=== PATIENT | male | born 1945 | race Caucasian/White ===

== ENCOUNTER 2020-01-14 12:53 | Inpatient (IN) ==
[2020-01-14] MEDS ORDERED: ALBUTEROL/IPRATROPIUM 3 ML NEB RESP TX STA (13:29)
[2020-01-14] MEDS ORDERED: methylPREDNISolone SOD SUC 125 MG/2 ML VIAL IV STA (13:29)
[2020-01-14 13:37] LABS: Basophils % 0.3 % (0.0-0.8); Eosinophils # 0.1 10*3/uL (0.0-0.87); Eosinophils % 1.2 % (0.00-10.9); Hematocrit 39.6 VOL% (42.0-52.0); Hemoglobin 12.3 GM/DL (14.0-18.0); Immature Granulocytes % 0.5 %; Immature Granulocytes Absolute 0.06 #; Lymphocytes # 1.5 10*3/uL (1.4-4.0); Mean Corpuscular HGB Conc 31.1 GM/DL (32-36); Mean Corpuscular Volume 93.2 FL (87-102); Mean Platelet Volume 11.6 FL (9.6-12.0); NRBC # 0.02 10*3/uL; Platelet Count 198 T/CUMM (130-400); Red Blood Count 4.25 MC/CUMM (3.8-5.5); Red Cell Distribution Width 14.8 % (9.3-17.3)
[2020-01-14 13:38] LABS: Apearance,Urine CLEAR (Clear); Bacteria,Urine Occasional /HPF (Few); Bilirubin,Urine Negative (Negative); Blood, Urine Negative (Negative); Glucose,Urine (UA) Negative (Negative); Hyaline Casts,Urine 7 /LPF (0-3); Ketones,Urine Negative (Negative); Nitrite,Urine Negative (Negative); Protein,Urine Negative; RBC,Urine 1 /HPF (0-4); Urine Color Yellow (Yellow); Urine Specific Gravity 1.013 (1.001-1.035); WBC,Urine 1 /HPF (0-6)
[2020-01-14 13:51] LABS: Alanine Aminotransferase 29 U/L (16-61); Albumin 2.8 G/DL (3.4-5.0); Alkaline Phosphatase 178 U/L (45-117); Aspartate Amino Transferase 37 U/L (0-37); Blood Urea Nitrogen 18 MG/DL (7-18); Calcium 8.7 MG/DL (8.5-10.1); Estimated Glom Filtration Rate 61 ML/MIN; Glucose 103 MG/DL (74-106); Osmolality,Calculated 263.7 MOS/KG (273-304); Total Protein 7.6 G/DL (6.4-8.3)
[2020-01-14] MEDS ORDERED: AZITHROMYCIN 250 MG TABLET PO STA (14:18)
[2020-01-14] MEDS ORDERED: cefTRIAXone 1,000 MG in SODIUM CHLORIDE 0.9% 100 ML IV STA (14:18)
[2020-01-14] MEDS ORDERED: DEXTROSE 10% 250 ML BAG IV PRN (15:11)
[2020-01-14] MEDS ORDERED: ONDANSETRON 4 MG/2 ML VIAL IV PRN (15:11)
[2020-01-14] MEDS ORDERED: SIMETHICONE CHEW 125 MG TABLET PO PRN (15:11)
[2020-01-14] MEDS ORDERED: GLUCAGON 1 MG VIAL IM PRN (15:11)
[2020-01-14] MEDS ORDERED: DOCUSATE SODIUM 100 MG CAPSULE PO PRN (15:11)
[2020-01-14] MEDS ORDERED: ALBUTEROL/IPRATROPIUM 3 ML NEB RESP TX PRN (15:21)
[2020-01-14] MEDS ORDERED: DILTIAZEM 25 MG/5 ML VIAL IV ONE (15:42)
[2020-01-14] MEDS ORDERED: DILTIAZEM 50 MG/10 ML VIAL IV STA (15:50)
[2020-01-14] MEDS ORDERED: PNEUMOCOCCAL VACCINE (13 VALENT) 0.5 ML SYRINGE IM ONE (17:04)
[2020-01-14] MEDS: SODIUM CHLORIDE 0.9% 1,000 ML IV SCH (17:16)
[2020-01-14] MEDS: guaiFENesin 200 MG/10 ML UDCUP PO PRN (17:21)
[2020-01-14] MEDS: ENOXAPARIN 40 MG/0.4 ML SYRINGE SUBCUT SCH (17:21)
[2020-01-14] MEDS: ALBUTEROL/IPRATROPIUM 3 ML NEB RESP TX SCH (19:50)
[2020-01-15] MEDS: ALBUTEROL/IPRATROPIUM 3 ML NEB RESP TX SCH ×6 (00:33→19:20)
[2020-01-15] MEDS: methylPREDNISolone SOD SUC 40 MG/1 ML VIAL IV SCH ×2 (00:40→08:40)
[2020-01-15 05:52] LABS: Calcium 8.4 MG/DL (8.5-10.1); Osmolality,Calculated 275.1 MOS/KG (273-304)
[2020-01-15 05:57] LABS: Basophils % 0.1 % (0.0-0.8); Hematocrit 35.9 VOL% (42.0-52.0); Hemoglobin 11.4 GM/DL (14.0-18.0); Immature Granulocytes % 0.6 %; Immature Granulocytes Absolute 0.05 #; Lymphocytes # 0.7 10*3/uL (1.4-4.0); Lymphocytes % 8.4 % (21.2-54.2); Mean Corpuscular HGB Conc 31.8 GM/DL (32-36); Mean Corpuscular Volume 90.9 FL (87-102); Mean Platelet Volume 11.6 FL (9.6-12.0); Monocytes % 2.8 % (1.7-12.7); Neutrophils % 88.1 % (38.7-73.9); Platelet Count 198 T/CUMM (130-400); Red Blood Count 3.95 MC/CUMM (3.8-5.5); White Blood Count 8.3 T/CUMM (4-12)
[2020-01-15] MEDS: guaiFENesin 200 MG/10 ML UDCUP PO PRN (07:09)
[2020-01-15] MEDS: SODIUM CHLORIDE 0.9% 1,000 ML IV SCH (08:39)
[2020-01-15] MEDS: cefTRIAXone 1,000 MG in SYRINGE 1 EACH IV SCH (08:41)
[2020-01-15] MEDS: ENOXAPARIN 40 MG/0.4 ML SYRINGE SUBCUT SCH (08:43)
[2020-01-15] MEDS: AZITHROMYCIN INJ 250 MG in SODIUM CHLORIDE 0.9% 150 ML IV SCH (08:47)
[2020-01-16] MEDS: ALBUTEROL/IPRATROPIUM 3 ML NEB RESP TX SCH ×8 (00:35→23:22)
[2020-01-16 05:26] LABS: Basophils % 0.1 % (0.0-0.8); Hemoglobin 11.2 GM/DL (14.0-18.0); Immature Granulocytes % 0.7 %; Lymphocytes % 6.7 % (21.2-54.2); Mean Corpuscular HGB Conc 31.1 GM/DL (32-36); Mean Corpuscular Volume 93.3 FL (87-102); Mean Platelet Volume 11.1 FL (9.6-12.0); Monocytes % 5.3 % (1.7-12.7); NRBC # 0.02 10*3/uL; Neutrophils % 87.2 % (38.7-73.9); Platelet Count 214 T/CUMM (130-400); Red Blood Count 3.86 MC/CUMM (3.8-5.5); Red Cell Distribution Width 15.2 % (9.3-17.3); White Blood Count 14.3 T/CUMM (4-12)
[2020-01-16 05:43] LABS: Albumin 2.7 G/DL (3.4-5.0); Bilirubin,Total 0.7 MG/DL (0.2-1.0); Calcium 8.7 MG/DL (8.5-10.1); Total Protein 7.6 G/DL (6.4-8.3)
[2020-01-16] MEDS: ENOXAPARIN 40 MG/0.4 ML SYRINGE SUBCUT SCH (09:09)
[2020-01-16] MEDS: methylPREDNISolone SOD SUC 40 MG/1 ML VIAL IV SCH (09:09)
[2020-01-16] MEDS: cefTRIAXone 1,000 MG in SYRINGE 1 EACH IV SCH (09:13)
[2020-01-16] MEDS: AZITHROMYCIN INJ 250 MG in SODIUM CHLORIDE 0.9% 150 ML IV SCH (09:17)
[2020-01-16] MEDS: SODIUM CHLORIDE 0.9% 1,000 ML IV SCH (10:50)
[2020-01-16] MEDS: guaiFENesin 200 MG/10 ML UDCUP PO PRN ×2 (11:48→18:08)
[2020-01-17] MEDS: ALBUTEROL/IPRATROPIUM 3 ML NEB RESP TX SCH ×6 (05:34→23:40)
[2020-01-17] MEDS: guaiFENesin 200 MG/10 ML UDCUP PO PRN (06:39)
[2020-01-17] MEDS: cefTRIAXone 1,000 MG in SYRINGE 1 EACH IV SCH (08:30)
[2020-01-17] MEDS: methylPREDNISolone SOD SUC 40 MG/1 ML VIAL IV SCH (08:31)
[2020-01-17] MEDS: ENOXAPARIN 40 MG/0.4 ML SYRINGE SUBCUT SCH (08:32)
[2020-01-17] MEDS: AZITHROMYCIN 250 MG TABLET PO SCH (08:33)
[2020-01-17 08:50] LABS: Basophils % 0.2 % (0.0-0.8); Hemoglobin 11.1 GM/DL (14.0-18.0); Immature Granulocytes % 0.9 %; Immature Granulocytes Absolute 0.12 #; Lymphocytes # 1.3 10*3/uL (1.4-4.0); Lymphocytes % 9.5 % (21.2-54.2); Mean Corpuscular HGB Conc 30.8 GM/DL (32-36); Mean Platelet Volume 10.8 FL (9.6-12.0); NRBC # 0.02 10*3/uL; Neutrophils % 82.4 % (38.7-73.9); Platelet Count 210 T/CUMM (130-400); Red Blood Count 3.83 MC/CUMM (3.8-5.5); Red Cell Distribution Width 15.5 % (9.3-17.3); White Blood Count 13.2 T/CUMM (4-12)
[2020-01-17 09:05] LABS: Calcium 8.9 MG/DL (8.5-10.1); Osmolality,Calculated 275.1 MOS/KG (273-304)
[2020-01-18] MEDS: ALBUTEROL/IPRATROPIUM 3 ML NEB RESP TX SCH ×6 (02:44→23:40)
[2020-01-18 04:27] LABS: Basophils % 0.1 % (0.0-0.8); Hematocrit 34.6 VOL% (42.0-52.0); Hemoglobin 11.1 GM/DL (14.0-18.0); Immature Granulocytes % 0.8 %; Lymphocytes # 1.2 10*3/uL (1.4-4.0); Lymphocytes % 10.1 % (21.2-54.2); Mean Corpuscular HGB Conc 32.1 GM/DL (32-36); Mean Corpuscular Volume 91.1 FL (87-102); Monocytes % 7.9 % (1.7-12.7); Neutrophils % 81.1 % (38.7-73.9); Platelet Count 205 T/CUMM (130-400); Red Cell Distribution Width 15.4 % (9.3-17.3); White Blood Count 12.1 T/CUMM (4-12)
[2020-01-18 05:06] LABS: Calcium 8.6 MG/DL (8.5-10.1); Osmolality,Calculated 277.1 MOS/KG (273-304)
[2020-01-18] MEDS ORDERED: FUROSEMIDE 40 MG/4 ML VIAL IV ONE (07:36)
[2020-01-18] MEDS: cefTRIAXone 1,000 MG in SYRINGE 1 EACH IV SCH (08:56)
[2020-01-18] MEDS: AZITHROMYCIN 250 MG TABLET PO SCH (08:57)
[2020-01-18] MEDS: LOSARTAN 25 MG TABLET PO SCH ×2 (08:57→20:47)
[2020-01-18] MEDS: carvediloL 3.125 MG TABLET PO SCH ×2 (08:57→16:15)
[2020-01-18] MEDS: ENOXAPARIN 40 MG/0.4 ML SYRINGE SUBCUT SCH (08:58)
[2020-01-18] MEDS: methylPREDNISolone SOD SUC 40 MG/1 ML VIAL IV SCH (08:58)
[2020-01-18] MEDS: SPIRONOLACTONE 25 MG TABLET PO SCH (12:12)
[2020-01-18] MEDS: ASCORBIC ACID 500 MG TABLET PO SCH ×2 (13:34→20:47)
[2020-01-18] MEDS: FUROSEMIDE 40 MG/4 ML VIAL IV SCH ×2 (16:14→17:19)
[2020-01-18] MEDS: ENOXAPARIN 80 MG/0.8 ML SYRINGE SUBCUT SCH (20:47)
[2020-01-19] MEDS: ALBUTEROL/IPRATROPIUM 3 ML NEB RESP TX SCH ×6 (03:42→22:35)
[2020-01-19 05:12] LABS: Calcium 8.7 MG/DL (8.5-10.1); Osmolality,Calculated 278.1 MOS/KG (273-304)
[2020-01-19] MEDS: carvediloL 3.125 MG TABLET PO SCH (09:55)
[2020-01-19] MEDS: SPIRONOLACTONE 25 MG TABLET PO SCH (09:55)
[2020-01-19] MEDS: ENOXAPARIN 80 MG/0.8 ML SYRINGE SUBCUT SCH ×2 (09:55→21:03)
[2020-01-19] MEDS: LOSARTAN 25 MG TABLET PO SCH ×2 (09:55→21:03)
[2020-01-19] MEDS: methylPREDNISolone SOD SUC 40 MG/1 ML VIAL IV SCH (09:56)
[2020-01-19] MEDS: ASCORBIC ACID 500 MG TABLET PO SCH ×2 (09:56→21:04)
[2020-01-19] MEDS: FUROSEMIDE 40 MG/4 ML VIAL IV SCH (09:56)
[2020-01-19] MEDS: cefTRIAXone 1,000 MG in SYRINGE 1 EACH IV SCH (09:57)
[2020-01-19] MEDS: ASPIRIN EC 81 MG TABLET PO SCH (10:00)
[2020-01-19] MEDS ORDERED: FUROSEMIDE 40 MG TABLET PO SCH (16:00)
[2020-01-19] MEDS: carvediloL 6.25 MG TABLET PO SCH (16:33)
[2020-01-20] MEDS: ALBUTEROL/IPRATROPIUM 3 ML NEB RESP TX SCH ×4 (01:28→14:44)
[2020-01-20 05:14] LABS: Basophils % 0.1 % (0.0-0.8); Eosinophils # 0.1 10*3/uL (0.0-0.87); Eosinophils % 0.7 % (0.00-10.9); Hematocrit 34.2 VOL% (42.0-52.0); Immature Granulocytes % 0.7 %; Immature Granulocytes Absolute 0.08 #; Lymphocytes # 2.2 10*3/uL (1.4-4.0); Mean Corpuscular HGB Conc 32.2 GM/DL (32-36); Mean Corpuscular Volume 90.2 FL (87-102); Mean Platelet Volume 11.1 FL (9.6-12.0); Monocytes % 8.5 % (1.7-12.7); NRBC # 0.02 10*3/uL; Platelet Count 234 T/CUMM (130-400); Red Blood Count 3.79 MC/CUMM (3.8-5.5); Red Cell Distribution Width 15.6 % (9.3-17.3)
[2020-01-20 05:34] LABS: Calcium 8.3 MG/DL (8.5-10.1)
[2020-01-20] MEDS ORDERED: APIXABAN 5 MG TABLET PO SCH (09:00)
[2020-01-20] MEDS ORDERED: FUROSEMIDE 40 MG TABLET PO SCH (09:00)
[2020-01-20] MEDS ORDERED: SACUBITRIL/VALSARTAN 49-51 MG TABLET PO SCH (09:00)
[2020-01-20] MEDS: carvediloL 6.25 MG TABLET PO SCH (10:00)
[2020-01-20] MEDS: ASPIRIN EC 81 MG TABLET PO SCH (10:00)
[2020-01-20] MEDS: cefTRIAXone 1,000 MG in SYRINGE 1 EACH IV SCH (10:01)
[2020-01-20] MEDS: methylPREDNISolone SOD SUC 40 MG/1 ML VIAL IV SCH (10:04)
[2020-01-20] MEDS: ASCORBIC ACID 500 MG TABLET PO SCH (10:10)
[2020-01-20] MEDS: SPIRONOLACTONE 25 MG TABLET PO SCH (10:10)
[2020-01-20 12:59] VITALS: BP 126/56
== END 2020-01-20 16:50 | disposition home or self-care (01) | DRG 193 ==
LOC: N.ED 12:53 → N.EDINP 15:11 → SUATTDRO 15:11 → N.2E 16:19 → N.3E 01-18 18:08
PROVIDERS: ADMIT Internal Medicine; ATTEND Internal Medicine Geriatric Medicine

== ENCOUNTER 2020-03-10 05:47 | Inpatient (IN) ==
[2020-03-10] MEDS ORDERED: DIAZEPAM 5 MG TABLET PO ONE (05:59)
[2020-03-10] MEDS ORDERED: ASPIRIN 325 MG TABLET PO ONE (05:59)
[2020-03-10] MEDS ORDERED: diphenhydrAMINE CAP 25 MG CAPSULE PO ONE (05:59)
[2020-03-10] MEDS ORDERED: MAGNESIUM SULF RIDER 2 GM in PREMIX 1 EACH IV PRN (05:59)
[2020-03-10] MEDS ORDERED: POTASSIUM CHLORIDE RIDER 10 MEQ in PREMIX 1 EACH IV PRN (05:59)
[2020-03-10] MEDS ORDERED: DEXTROSE 5% NACL 0.45% 1,000 ML IV SCH (06:00)
[2020-03-10 07:05] LABS: INR 1.7; PT Patient Result 17.2 SECS (9.8-11.9)
[2020-03-10] MEDS ORDERED: ASPIRIN 325 MG TABLET ONE (07:05)
[2020-03-10] MEDS ORDERED: DIAZEPAM 5 MG TABLET ONE (07:05)
[2020-03-10] MEDS ORDERED: diphenhydrAMINE CAP 25 MG CAPSULE ONE (07:06)
[2020-03-10] MEDS ORDERED: HEPARIN/NACL 0.9% 2 UNITS/ML 1,000 ML IV ONE (07:24)
[2020-03-10] MEDS ORDERED: LIDOCAINE 1%/EPI INJ 20 ML VIAL ONE (07:24)
[2020-03-10] MEDS ORDERED: fentaNYL 100 MCG/2 ML VIAL ONE (07:38)
[2020-03-10] MEDS ORDERED: MIDAZOLAM 2 MG/2 ML VIAL ONE (07:38)
[2020-03-10] MEDS ORDERED: HYDROmorphone 2 MG/1 ML VIAL IV PRN (08:38)
[2020-03-10 08:54] LABS: Basophils % 0.2 % (0.0-0.8); Eosinophils # 0.5 10*3/uL (0.0-0.87); Eosinophils % 5.3 % (0.00-10.9); Immature Granulocytes % 0.5 %; Immature Granulocytes Absolute 0.05 #; Lymphocytes # 1.8 10*3/uL (1.4-4.0); Lymphocytes % 19.8 % (21.2-54.2); Mean Corpuscular HGB Conc 30.7 GM/DL (32-36); Mean Corpuscular Volume 94.2 FL (87-102); Mean Platelet Volume 10.8 FL (9.6-12.0); Monocytes % 9.4 % (1.7-12.7); Neutrophils % 64.8 % (38.7-73.9); Platelet Count 171 T/CUMM (130-400); Red Blood Count 1.73 MC/CUMM (3.8-5.5); Red Cell Distribution Width 18.5 % (9.3-17.3); White Blood Count 9.2 T/CUMM (4-12)
[2020-03-10 08:59] LABS: Hematocrit 16.3 VOL% (42.0-52.0)
[2020-03-10] MEDS ORDERED: SPIRONOLACTONE 25 MG TABLET PO SCH (09:00)
[2020-03-10] MEDS ORDERED: ASPIRIN EC 81 MG TABLET PO SCH (09:00)
[2020-03-10 09:05] LABS: Apearance,Urine CLEAR (Clear); Bacteria,Urine Occasional /HPF (Few); Bilirubin,Urine Negative (Negative); Blood, Urine Small mg/dL (Negative); Glucose,Urine (UA) Negative (Negative); Ketones,Urine Negative (Negative); Mucus,Urine Occasional /LPF (Occasional); Nitrite,Urine Negative (Negative); Protein,Urine Negative; RBC,Urine 1 /HPF (0-4); Urine Color Straw (Yellow); Urine Specific Gravity 1.012 (1.001-1.035); Urine Urobilinogen < 2.0 EU/DL (0.2-1.0)
[2020-03-10 09:09] LABS: Calcium 8.1 MG/DL (8.5-10.1); Osmolality,Calculated 302.4 MOS/KG (273-304)
[2020-03-10] MEDS ORDERED: SODIUM CHLORIDE 0.9% 1,000 ML IV PRN (09:09)
[2020-03-10 10:57] LABS: Basophils % 0.3 % (0.0-0.8); Eosinophils # 0.5 10*3/uL (0.0-0.87); Eosinophils % 4.9 % (0.00-10.9); Immature Granulocytes % 0.4 %; Immature Granulocytes Absolute 0.04 #; Lymphocytes # 2.1 10*3/uL (1.4-4.0); Lymphocytes % 22.5 % (21.2-54.2); Mean Corpuscular HGB Conc 30.1 GM/DL (32-36); Mean Corpuscular Volume 95.1 FL (87-102); Mean Platelet Volume 10.6 FL (9.6-12.0); Monocytes % 10.5 % (1.7-12.7); Neutrophils % 61.4 % (38.7-73.9); Platelet Count 189 T/CUMM (130-400); Red Blood Count 1.85 MC/CUMM (3.8-5.5); Red Cell Distribution Width 18.5 % (9.3-17.3); White Blood Count 9.4 T/CUMM (4-12)
[2020-03-10 11:05] LABS: Folate 10.3 NG/ML (5.4-24.0); Vitamin B12 286 PG/ML (211-911)
[2020-03-10 11:26] LABS: Hematocrit 17.6 VOL% (42.0-52.0); Hemoglobin 5.3 GM/DL (14.0-18.0)
[2020-03-10 11:59] LABS: Sedimentation Rate-Westergren 99 MM/HR (0-20)
[2020-03-10] MEDS ORDERED: MAGNESIUM HYDROXIDE SUSP 30 ML UDCUP PO PRN (13:41)
[2020-03-10] MEDS ORDERED: diphenhydrAMINE CAP 25 MG CAPSULE PO PRN (13:41)
[2020-03-10] MEDS: ASPIRIN EC 81 MG TABLET PO SCH (15:41)
[2020-03-10] MEDS: FUROSEMIDE 40 MG TABLET PO SCH (15:42)
[2020-03-10] MEDS: SACUBITRIL/VALSARTAN 49-51 MG TABLET PO SCH ×2 (15:42→20:33)
[2020-03-10] MEDS: ASCORBIC ACID 500 MG TABLET PO SCH ×2 (15:42→20:33)
[2020-03-10] MEDS: carvediloL 6.25 MG TABLET PO SCH (17:47)
[2020-03-10] MEDS: ROSUVASTATIN 20 MG TABLET PO SCH (20:33)
[2020-03-11 06:36] LABS: Basophils # 0.1 10*3/uL (0.0-0.2); Basophils % 0.4 % (0.0-0.8); Eosinophils # 0.7 10*3/uL (0.0-0.87); Hematocrit 30.1 VOL% (42.0-52.0); Hemoglobin 9.8 GM/DL (14.0-18.0); Immature Granulocytes % 0.5 %; Immature Granulocytes Absolute 0.06 #; Lymphocytes # 2.5 10*3/uL (1.4-4.0); Lymphocytes % 21.1 % (21.2-54.2); Mean Corpuscular HGB Conc 32.6 GM/DL (32-36); Mean Corpuscular Volume 89.9 FL (87-102); Mean Platelet Volume 10.7 FL (9.6-12.0); Monocytes % 13.1 % (1.7-12.7); Neutrophils % 58.9 % (38.7-73.9); Platelet Count 192 T/CUMM (130-400); Red Blood Count 3.35 MC/CUMM (3.8-5.5); Red Cell Distribution Width 17.1 % (9.3-17.3)
[2020-03-11 06:54] LABS: Calcium 8.8 MG/DL (8.5-10.1); Osmolality,Calculated 292.1 MOS/KG (273-304)
[2020-03-11] MEDS: carvediloL 6.25 MG TABLET PO SCH ×2 (08:17→16:01)
[2020-03-11] MEDS: ASPIRIN EC 81 MG TABLET PO SCH (08:20)
[2020-03-11] MEDS: ASCORBIC ACID 500 MG TABLET PO SCH ×2 (08:20→21:01)
[2020-03-11] MEDS: FUROSEMIDE 40 MG TABLET PO SCH (08:20)
[2020-03-11 10:34] LABS: Hemoglobin A1 (Alkaline) 97.7 % (96.5-98.5); Hemoglobin A2 (Alkaline) 2.3 % (1.5-3.5)
[2020-03-11] MEDS: ISOSORBIDE MONONITRATE 30 MG TABLET PO SCH (12:16)
[2020-03-11] MEDS ORDERED: NITROGLYCERIN SL 0.4 MG TABLET SL PRN (13:28)
[2020-03-11 17:48] LABS: Basophils % 0.3 % (0.0-0.8); Eosinophils # 0.7 10*3/uL (0.0-0.87); Eosinophils % 5.4 % (0.00-10.9); Hematocrit 30.6 VOL% (42.0-52.0); Hemoglobin 10.1 GM/DL (14.0-18.0); Immature Granulocytes % 0.5 %; Immature Granulocytes Absolute 0.06 #; Lymphocytes # 2.3 10*3/uL (1.4-4.0); Lymphocytes % 18.6 % (21.2-54.2); Mean Corpuscular Volume 87.9 FL (87-102); Mean Platelet Volume 10.3 FL (9.6-12.0); Monocytes % 8.9 % (1.7-12.7); Neutrophils % 66.3 % (38.7-73.9); Platelet Count 199 T/CUMM (130-400); Red Blood Count 3.48 MC/CUMM (3.8-5.5); Red Cell Distribution Width 17.3 % (9.3-17.3); White Blood Count 12.2 T/CUMM (4-12)
[2020-03-11] MEDS: ROSUVASTATIN 20 MG TABLET PO SCH (21:01)
[2020-03-11] MEDS: hydrALAZINE 25 MG TABLET PO SCH (21:01)
[2020-03-12 06:20] LABS: Basophils # 0.1 10*3/uL (0.0-0.2); Basophils % 0.4 % (0.0-0.8); Eosinophils # 0.8 10*3/uL (0.0-0.87); Eosinophils % 6.4 % (0.00-10.9); Hematocrit 33.9 VOL% (42.0-52.0); Immature Granulocytes % 0.5 %; Immature Granulocytes Absolute 0.06 #; Lymphocytes # 2.6 10*3/uL (1.4-4.0); Lymphocytes % 22.2 % (21.2-54.2); Mean Corpuscular HGB Conc 32.4 GM/DL (32-36); Mean Corpuscular Volume 90.2 FL (87-102); Mean Platelet Volume 10.3 FL (9.6-12.0); Monocytes % 11.3 % (1.7-12.7); Neutrophils % 59.2 % (38.7-73.9); Platelet Count 223 T/CUMM (130-400); Red Blood Count 3.76 MC/CUMM (3.8-5.5); Red Cell Distribution Width 17.2 % (9.3-17.3); White Blood Count 11.7 T/CUMM (4-12)
[2020-03-12 06:29] LABS: INR 1.1; PT Patient Result 11.4 SECS (9.8-11.9)
[2020-03-12 06:50] LABS: Calcium 9.3 MG/DL (8.5-10.1); Osmolality,Calculated 289.1 MOS/KG (273-304)
[2020-03-12 07:32] LABS: Albumin 3.1 G/DL (3.4-5.0); Bilirubin,Total 0.4 MG/DL (0.2-1.0); Calcium 9.3 MG/DL (8.5-10.1); Total Protein 6.9 G/DL (6.4-8.3)
[2020-03-12] MEDS ORDERED: SODIUM CHLORIDE 0.9% 1,000 ML IV SCH (09:00)
[2020-03-12] MEDS ORDERED: DEXTROSE 10% 250 ML BAG IV PRN (09:22)
[2020-03-12] MEDS ORDERED: GLUCAGON 1 MG VIAL IM PRN (09:22)
[2020-03-12] MEDS: ASPIRIN EC 81 MG TABLET PO SCH (09:27)
[2020-03-12] MEDS: hydrALAZINE 25 MG TABLET PO SCH ×2 (09:27→21:49)
[2020-03-12] MEDS: carvediloL 6.25 MG TABLET PO SCH ×2 (09:27→18:15)
[2020-03-12] MEDS: ASCORBIC ACID 500 MG TABLET PO SCH ×2 (09:28→21:49)
[2020-03-12] MEDS: ISOSORBIDE MONONITRATE 30 MG TABLET PO SCH (09:28)
[2020-03-12 10:40] LABS: ABG Base Excess -1.5 MMOL/L (-2.5-2.5); ABG HCO3 23.2 MMOL/L (20-26); ABG Oxygen Saturation 97.8 % (95-100); ABG PCO2 34.5 MM HG (35-48); ABG PH 7.421 (7.35-7.45); ABG PO2 94.5 MM HG (80-95); ABG TCO2 20.1 MMOL/L (23-27); Allen Test Positive; Pt O2 Delivery Device Room Air
[2020-03-12] MEDS: CHLORHEXIDINE 4% SOLN 118 ML BOTTLE TOP SCH ×2 (15:39→21:49)
[2020-03-12] MEDS: ROSUVASTATIN 20 MG TABLET PO SCH (21:49)
[2020-03-12] MEDS: CHLORHEXIDINE 0.12% ORAL RINSE 60 ML BOTTLE SWISH/SPIT SCH (21:50)
[2020-03-13] MEDS ORDERED: PAPAVERINE 60 MG/2 ML VIAL ONE (04:20)
[2020-03-13] MEDS ORDERED: VANCOMYCIN 500 MG VIAL ONE (04:20)
[2020-03-13] MEDS ORDERED: VANCOMYCIN 1,000 MG VIAL ONE (04:21)
[2020-03-13 05:30] LABS: Basophils # 0.1 10*3/uL (0.0-0.2); Basophils % 0.5 % (0.0-0.8); Eosinophils # 0.8 10*3/uL (0.0-0.87); Eosinophils % 8.3 % (0.00-10.9); Hematocrit 32.5 VOL% (42.0-52.0); Hemoglobin 10.3 GM/DL (14.0-18.0); Immature Granulocytes % 0.4 %; Immature Granulocytes Absolute 0.04 #; Lymphocytes # 2.7 10*3/uL (1.4-4.0); Lymphocytes % 26.7 % (21.2-54.2); Mean Corpuscular HGB Conc 31.7 GM/DL (32-36); Mean Corpuscular Volume 92.1 FL (87-102); Mean Platelet Volume 10.1 FL (9.6-12.0); Monocytes % 9.4 % (1.7-12.7); Neutrophils % 54.7 % (38.7-73.9); Platelet Count 218 T/CUMM (130-400); Red Blood Count 3.53 MC/CUMM (3.8-5.5); Red Cell Distribution Width 17.2 % (9.3-17.3)
[2020-03-13 05:56] LABS: Calcium 8.8 MG/DL (8.5-10.1); Osmolality,Calculated 287.8 MOS/KG (273-304)
[2020-03-13] MEDS ORDERED: CEFUROXIME INJ 1,500 MG in SYRINGE 1 EACH IV ONE (06:00)
[2020-03-13] MEDS ORDERED: LIDOCAINE 2% 5 ML VIAL ONE ×2 (06:04→09:38)
[2020-03-13] MEDS ORDERED: PHENYLEPHRINE DRIP 20 MG/250 ML PREMIX IV ONE (06:05)
[2020-03-13] MEDS ORDERED: MIDAZOLAM 10 MG/2 ML VIAL ONE (06:05)
[2020-03-13] MEDS ORDERED: CALCIUM CHLORIDE 1,000 MG/10 ML VIAL IV ONE (06:05)
[2020-03-13] MEDS ORDERED: HEPARIN/NACL 0.9% 2 UNITS/ML 500 ML IV ONE (06:05)
[2020-03-13] MEDS ORDERED: ePHEDrine 50 MG/ML AMP ONE (06:05)
[2020-03-13] MEDS ORDERED: fentaNYL 250 MCG/5 ML VIAL ONE (06:05)
[2020-03-13] MEDS ORDERED: LACTATED RINGERS 1,000 ML IV ONE (06:06)
[2020-03-13] MEDS ORDERED: SODIUM CHLORIDE 0.9% 250 ML IV ONE (06:06)
[2020-03-13] MEDS ORDERED: AMINOCAPROIC ACID 5,000 MG/20 ML VIAL ONE (06:06)
[2020-03-13] MEDS ORDERED: SODIUM CHLORIDE 0.9% 1,000 ML IV ONE (06:06)
[2020-03-13] MEDS ORDERED: VECURONIUM 10 MG VIAL IV ONE (06:06)
[2020-03-13] MEDS ORDERED: ETOMIDATE 40 MG/20 ML VIAL IV ONE (06:06)
[2020-03-13] MEDS ORDERED: NITROPRUSSIDE 50 MG/2 ML VIAL ONE (07:25)
[2020-03-13] MEDS ORDERED: SODIUM BICARBONATE 50 MEQ/50 ML VIAL IV ONE ×2 (07:26→09:38)
[2020-03-13] MEDS ORDERED: POTASSIUM CHLORIDE RIDER 100 ML IV ONE (07:26)
[2020-03-13] MEDS ORDERED: CALCIUM CHLORIDE 1,000 MG/10 ML SYRINGE IV ONE (07:26)
[2020-03-13] MEDS ORDERED: PHENYLEPHRINE DRIP 40 MG/250 ML PREMIX IV ONE (07:26)
[2020-03-13] MEDS ORDERED: ALBUMIN 5% 12.5 GM/250 ML VIAL IV ONE ×2 (07:27→09:39)
[2020-03-13 07:41] LABS: ABG Base Excess -2.7 MMOL/L (-2.5-2.5); ABG HCO3 22.2 MMOL/L (20-26); ABG PCO2 40.2 MM HG (35-48); ABG PH 7.357 (7.35-7.45); ABG TCO2 20.6 MMOL/L (23-27); Glucose Heart Surgery 115 MG/DL (74-106); Hematocrit Heart Surgery 30.4 PERCENT (42-52); Hemoglobin Heart Surgery 9.8 G/DL (14.0-18.0); Ionized Calcium Arterial 1.23 MMOL/L (1.21-1.46); PCO2 Patient Temp Arterial 40.2 MMHG; PH Patient Temp Arterial 7.357; Patient Temperature 37 CELCIUS; Potassium Heart/CVR 4.2 MMOL/L (3.5-5.1); Sodium Heart/CVR 139 MMOL/L (135-145)
[2020-03-13 08:33] LABS: Hematocrit Heart Surgery 25.2 PERCENT (42-52); Hemoglobin Heart Surgery 8.1 G/DL (14.0-18.0); PCO2 Patient Temp Venous 33.9 MM HG; PH Patient Temp Venous 7.382; PO2 Patient Temp Venous 41.8 MM HG; VBG Base Excess -4.3 MEQ/L (0-4); VBG HCO3 20.6 MEQ/L (24-28); VBG Oxygen Saturation 82.6 %; VBG PCO2 37.3 MMHG (41-51); VBG PH 7.353
[2020-03-13 08:34] LABS: Potassium Heart/CVR 6.2 MMOL/L (3.5-5.1)
[2020-03-13] MEDS ORDERED: diphenhydrAMINE 50 MG/1 ML VIAL ONE (08:56)
[2020-03-13] MEDS ORDERED: FAMOTIDINE 20 MG/2 ML VIAL IV ONE (08:57)
[2020-03-13 09:05] LABS: Hematocrit Heart Surgery 26.6 PERCENT (42-52); Hemoglobin Heart Surgery 8.5 G/DL (14.0-18.0); PH Patient Temp Venous 7.516; PO2 Patient Temp Venous 39.4 MM HG; Potassium Heart/CVR 5.9 MMOL/L (3.5-5.1); VBG Base Excess 0.3 MEQ/L (0-4); VBG HCO3 24.5 MEQ/L (24-28); VBG Oxygen Saturation 84.3 %; VBG PCO2 30.8 MMHG (41-51); VBG PH 7.485; VBG PO2 45.2 MMHG (17-40)
[2020-03-13] MEDS ORDERED: methylPREDNISolone SOD SUC 1,000 MG/8 ML VIAL ONE (09:38)
[2020-03-13] MEDS ORDERED: MAGNESIUM SULFATE 5 GM/10 ML VIAL IV ONE (09:38)
[2020-03-13] MEDS ORDERED: MANNITOL 100 GM/500 ML BAG IV ONE (09:38)
[2020-03-13] MEDS ORDERED: PROTAMINE SULFATE 250 MG/25 ML VIAL IV ONE (09:38)
[2020-03-13] MEDS ORDERED: DEXTROSE 5% KCL 20 MEQ 20 MEQ/1,000 ML BAG IV ONE (09:38)
[2020-03-13] MEDS ORDERED: HEPARIN 10,000 UNIT/10 ML VIAL ONE (09:38)
[2020-03-13] MEDS ORDERED: FUROSEMIDE 20 MG/2 ML VIAL ONE (09:39)
[2020-03-13 09:44] LABS: ABG Base Excess -1.3 MMOL/L (-2.5-2.5); ABG HCO3 23.3 MMOL/L (20-26); ABG PCO2 36.6 MM HG (35-48); ABG PH 7.407 (7.35-7.45); ABG TCO2 21.2 MMOL/L (23-27); Glucose Heart Surgery 258 MG/DL (74-106); Hematocrit Heart Surgery 28.3 PERCENT (42-52); Hemoglobin Heart Surgery 9.1 G/DL (14.0-18.0); Ionized Calcium Arterial 1.12 MMOL/L (1.21-1.46); PCO2 Patient Temp Arterial 36.6 MMHG; PH Patient Temp Arterial 7.407; Patient Temperature 37 CELCIUS; Potassium Heart/CVR 5.4 MMOL/L (3.5-5.1); Sodium Heart/CVR 136 MMOL/L (135-145)
[2020-03-13] MEDS ORDERED: SEVOFLURANE 1 UNIT/15 MINUTE INH ONE (10:38)
[2020-03-13] MEDS ORDERED: CALCIUM CHLORIDE 1,000 MG/10 ML SYRINGE IV PRN (10:42)
[2020-03-13] MEDS ORDERED: SODIUM CHLORIDE 0.45% 1,000 ML IV SCH ×2 (10:42)
[2020-03-13] MEDS ORDERED: CHLORHEXIDINE 4% SOLN 118 ML BOTTLE TOP PRN (10:42)
[2020-03-13] MEDS ORDERED: MORPHINE 10 MG/1 ML VIAL IV PRN (10:42)
[2020-03-13] MEDS ORDERED: INSULIN REGULAR 100 UNIT/ML IV ONE (10:42)
[2020-03-13] MEDS ORDERED: MAGNESIUM SULF RIDER 4 GM in PREMIX 1 EACH IV PRN (10:42)
[2020-03-13] MEDS ORDERED: DEXTROSE 10% 250 ML BAG IV PRN ×2 (10:42)
[2020-03-13] MEDS ORDERED: MIDAZOLAM 2 MG/2 ML VIAL IV PRN (10:42)
[2020-03-13] MEDS ORDERED: PHENYLEPHRINE DRIP 40 MG/250 ML PREMIX IV PRN (10:42)
[2020-03-13] MEDS ORDERED: POTASSIUM CHLORIDE RIDER 10 MEQ in PREMIX 1 EACH IV PRN (10:42)
[2020-03-13] MEDS ORDERED: INSULIN REGULAR DRIP 100 ML IV SCH (10:42)
[2020-03-13] MEDS ORDERED: NITROPRUSSIDE 100 MG in DEXTROSE 5% 250 ML IV PRN (10:42)
[2020-03-13] MEDS ORDERED: ALBUMIN 5% 12.5 GM in PREMIX 1 EACH IV PRN (10:42)
[2020-03-13] MEDS ORDERED: LACTATED RINGERS 250 ML IV PRN (10:42)
[2020-03-13] MEDS ORDERED: MAGNESIUM SULF RIDER 2 GM in PREMIX 1 EACH IV PRN (10:42)
[2020-03-13] MEDS ORDERED: MIDAZOLAM 10 MG/2 ML VIAL IV PRN (10:42)
[2020-03-13] MEDS ORDERED: ONDANSETRON 4 MG/2 ML VIAL IV PRN (10:42)
[2020-03-13] MEDS ORDERED: VECURONIUM 10 MG VIAL IV PRN ×2 (10:42)
[2020-03-13 10:58] LABS: ABG Base Excess -1.5 MMOL/L (-2.5-2.5); ABG HCO3 23.2 MMOL/L (20-26); ABG Oxygen Saturation 99.5 % (95-100); ABG PCO2 45.8 MM HG (35-48); ABG PH 7.337 (7.35-7.45); ABG TCO2 22.3 MMOL/L (23-27); Glucose Heart Surgery 230 MG/DL (74-106); Hemoglobin Heart Surgery 10.7 G/DL (14.0-18.0); Potassium Heart/CVR 4.7 MMOL/L (3.5-5.1)
[2020-03-13] MEDS: ASPIRIN EC 81 MG TABLET PO SCH (11:00)
[2020-03-13] MEDS: ISOSORBIDE MONONITRATE 30 MG TABLET PO SCH (11:00)
[2020-03-13] MEDS: hydrALAZINE 25 MG TABLET PO SCH (11:00)
[2020-03-13] MEDS: carvediloL 6.25 MG TABLET PO SCH ×2 (11:00→20:21)
[2020-03-13] MEDS: ASCORBIC ACID 500 MG TABLET PO SCH (11:01)
[2020-03-13] MEDS: CHLORHEXIDINE 0.12% ORAL RINSE 60 ML BOTTLE SWISH/SPIT SCH ×2 (11:01→21:23)
[2020-03-13 11:02] LABS: Basophils % 0.3 % (0.0-0.8); Eosinophils # 0.5 10*3/uL (0.0-0.87); Eosinophils % 4.1 % (0.00-10.9); Hematocrit 32.1 VOL% (42.0-52.0); Hemoglobin 10.4 GM/DL (14.0-18.0); Immature Granulocytes Absolute 0.12 #; Lymphocytes # 1.4 10*3/uL (1.4-4.0); Lymphocytes % 10.9 % (21.2-54.2); Mean Corpuscular HGB Conc 32.4 GM/DL (32-36); Mean Corpuscular Volume 91.7 FL (87-102); Mean Platelet Volume 10.2 FL (9.6-12.0); Monocytes % 6.5 % (1.7-12.7); Neutrophils % 77.2 % (38.7-73.9); Platelet Count 204 T/CUMM (130-400); Red Cell Distribution Width 16.9 % (9.3-17.3); White Blood Count 12.4 T/CUMM (4-12)
[2020-03-13 11:15] LABS: INR 1.1; PT Patient Result 12.1 SECS (9.8-11.9); Partial Thromboplastin Time 31.4 SECS (23.9-33.8)
[2020-03-13 11:34] LABS: CKMB % 11.7 %; Troponin I 7.56 NG/ML (0.00-0.045)
[2020-03-13 11:35] LABS: Bilirubin,Total 0.9 MG/DL (0.2-1.0); Calcium 9.1 MG/DL (8.5-10.1); Osmolality,Calculated 295.5 MOS/KG (273-304); Total Protein 6.7 G/DL (6.4-8.3)
[2020-03-13 12:38] LABS: ABG Base Excess -2.8 MMOL/L (-2.5-2.5); ABG HCO3 22.1 MMOL/L (20-26); ABG Oxygen Saturation 97.5 % (95-100); ABG PCO2 42.1 MM HG (35-48); ABG PH 7.342 (7.35-7.45); ABG PO2 96.1 MM HG (80-95); ABG TCO2 20.9 MMOL/L (23-27); Glucose Heart Surgery 221 MG/DL (74-106); Hematocrit Heart Surgery 30.5 PERCENT (42-52); Hemoglobin Heart Surgery 9.8 G/DL (14.0-18.0); Potassium Heart/CVR 4.3 MMOL/L (3.5-5.1)
[2020-03-13] MEDS: CHLORHEXIDINE 4% SOLN 118 ML BOTTLE TOP SCH (12:43)
[2020-03-13 12:58] LABS: Hematocrit Heart Surgery 30.4 PERCENT (42-52); Hemoglobin Heart Surgery 9.8 G/DL (14.0-18.0); PCO2 Patient Temp Venous 44.3 MM HG; PH Patient Temp Venous 7.323; PO2 Patient Temp Venous 85.3 MM HG; Potassium Heart/CVR 4.4 MMOL/L (3.5-5.1); VBG Base Excess -3.1 MEQ/L (0-4); VBG HCO3 21.8 MEQ/L (24-28); VBG Oxygen Saturation 96.3 %; VBG PCO2 44.3 MMHG (41-51); VBG PH 7.323; VBG PO2 85.3 MMHG (17-40)
[2020-03-13] MEDS: NITROGLYCERIN DRIP 50 MG/250 ML BOTTLE IV PRN (13:05)
[2020-03-13] MEDS: INSULIN REGULAR 100 UNIT/ML IV PRN ×2 (13:58→16:12)
[2020-03-13] MEDS: POTASSIUM CHLORIDE RIDER 20 MEQ in PREMIX 1 EACH IV PRN ×2 (13:59→18:40)
[2020-03-13] MEDS: MORPHINE 4 MG/1 ML VIAL IV PRN ×2 (16:05→21:32)
[2020-03-13 18:04] LABS: ABG Base Excess -1.2 MMOL/L (-2.5-2.5); ABG HCO3 23.4 MMOL/L (20-26); ABG Oxygen Saturation 99.5 % (95-100); ABG PCO2 41.7 MM HG (35-48); ABG PH 7.369 (7.35-7.45); ABG TCO2 22.4 MMOL/L (23-27); Glucose Heart Surgery 98 MG/DL (74-106); Hemoglobin Heart Surgery 8.4 G/DL (14.0-18.0); Potassium Heart/CVR 3.7 MMOL/L (3.5-5.1)
[2020-03-13 18:33] LABS: CKMB % 9.6 %
[2020-03-13 18:35] LABS: Troponin I 7.92 NG/ML (0.00-0.045)
[2020-03-13] MEDS: CEFUROXIME INJ 1,500 MG in SYRINGE 1 EACH IV SCH (18:40)
[2020-03-13] MEDS ORDERED: FUROSEMIDE 40 MG/4 ML VIAL IV PRN (18:58)
[2020-03-13 20:42] LABS: ABG Base Excess -0.7 MMOL/L (-2.5-2.5); ABG HCO3 23.6 MMOL/L (20-26); ABG Oxygen Saturation 97.8 % (95-100); ABG PCO2 37.5 MM HG (35-48); ABG PH 7.417 (7.35-7.45); ABG PO2 120.5 MM HG (80-95); ABG TCO2 24.8 MMOL/L (23-27); Glucose Heart Surgery 71 MG/DL (74-106); Hemoglobin Heart Surgery 10.1 G/DL (14.0-18.0); Potassium Heart/CVR 4.1 MMOL/L (3.5-5.1)
[2020-03-13] MEDS: SODIUM CHLORIDE 0.9% 1,000 ML IV SCH (21:44)
[2020-03-14 00:04] LABS: ABG Base Excess -4.8 MMOL/L (-2.5-2.5); ABG HCO3 20.5 MMOL/L (20-26); ABG Oxygen Saturation 98.7 % (95-100); ABG PCO2 34.6 MM HG (35-48); ABG PH 7.366 (7.35-7.45); ABG TCO2 17.8 MMOL/L (23-27); Glucose Heart Surgery 155 MG/DL (74-106); Hematocrit Heart Surgery 35.4 PERCENT (42-52); Hemoglobin Heart Surgery 11.5 G/DL (14.0-18.0); Potassium Heart/CVR 4.3 MMOL/L (3.5-5.1)
[2020-03-14] MEDS: POTASSIUM CHLORIDE RIDER 20 MEQ in PREMIX 1 EACH IV PRN ×2 (00:28→05:51)
[2020-03-14] MEDS: MORPHINE 4 MG/1 ML VIAL IV PRN (00:33)
[2020-03-14 01:03] LABS: ABG Base Excess -4.7 MMOL/L (-2.5-2.5); ABG HCO3 20.6 MMOL/L (20-26); ABG PCO2 33.4 MM HG (35-48); ABG TCO2 18.1 MMOL/L (23-27); Glucose Heart Surgery 164 MG/DL (74-106); Hematocrit Heart Surgery 30.1 PERCENT (42-52); Hemoglobin Heart Surgery 9.7 G/DL (14.0-18.0); Potassium Heart/CVR 4.1 MMOL/L (3.5-5.1)
[2020-03-14 02:05] LABS: ABG Base Excess -3.2 MMOL/L (-2.5-2.5); ABG HCO3 21.8 MMOL/L (20-26); ABG Oxygen Saturation 99.6 % (95-100); ABG PCO2 33.7 MM HG (35-48); ABG PH 7.402 (7.35-7.45); ABG TCO2 19.2 MMOL/L (23-27); Glucose Heart Surgery 157 MG/DL (74-106); Hematocrit Heart Surgery 29.8 PERCENT (42-52); Hemoglobin Heart Surgery 9.6 G/DL (14.0-18.0); Potassium Heart/CVR 4.2 MMOL/L (3.5-5.1)
[2020-03-14] MEDS: NITROGLYCERIN DRIP 50 MG/250 ML BOTTLE IV PRN (02:06)
[2020-03-14 03:29] LABS: ABG Base Excess -1.3 MMOL/L (-2.5-2.5); ABG HCO3 23.3 MMOL/L (20-26); ABG Oxygen Saturation 98.5 % (95-100); ABG PCO2 35.5 MM HG (35-48); ABG PH 7.416 (7.35-7.45); ABG TCO2 20.8 MMOL/L (23-27); Glucose Heart Surgery 129 MG/DL (74-106); Hematocrit Heart Surgery 30.1 PERCENT (42-52); Hemoglobin Heart Surgery 9.7 G/DL (14.0-18.0); Potassium Heart/CVR 4.4 MMOL/L (3.5-5.1)
[2020-03-14 03:42] LABS: Basophils % 0.1 % (0.0-0.8); Hematocrit 29.3 VOL% (42.0-52.0); Hemoglobin 9.5 GM/DL (14.0-18.0); Immature Granulocytes % 0.4 %; Immature Granulocytes Absolute 0.06 #; Lymphocytes # 1.3 10*3/uL (1.4-4.0); Lymphocytes % 9.1 % (21.2-54.2); Mean Corpuscular HGB Conc 32.4 GM/DL (32-36); Mean Platelet Volume 10.3 FL (9.6-12.0); Monocytes % 5.1 % (1.7-12.7); Neutrophils % 85.3 % (38.7-73.9); Platelet Count 186 T/CUMM (130-400); Red Blood Count 3.22 MC/CUMM (3.8-5.5); Red Cell Distribution Width 17.1 % (9.3-17.3); White Blood Count 13.8 T/CUMM (4-12)
[2020-03-14 04:08] LABS: Bilirubin,Direct 0.29 MG/DL (0.0-0.20); Bilirubin,Total 0.6 MG/DL (0.2-1.0); Calcium 8.5 MG/DL (8.5-10.1); Osmolality,Calculated 290.4 MOS/KG (273-304); Total Protein 6.4 G/DL (6.4-8.3)
[2020-03-14 04:18] LABS: CKMB % 6.1 %
[2020-03-14 04:27] LABS: Troponin I 4.51 NG/ML (0.00-0.045)
[2020-03-14] MEDS ORDERED: hydrALAZINE 20 MG/1 ML VIAL IV PRN (07:16)
[2020-03-14] MEDS ORDERED: INSULIN REGULAR 100 UNIT/ML SUBCUT SCH (07:30)
[2020-03-14] MEDS: CEFUROXIME INJ 1,500 MG in SYRINGE 1 EACH IV SCH (07:47)
[2020-03-14] MEDS: carvediloL 6.25 MG TABLET PO SCH ×2 (08:42→16:44)
[2020-03-14] MEDS: CHLORHEXIDINE 0.12% ORAL RINSE 60 ML BOTTLE SWISH/SPIT SCH ×3 (08:43→20:53)
[2020-03-14] MEDS ORDERED: cloNIDine 0.1 MG TABLET PO SCH (09:00)
[2020-03-14] MEDS ORDERED: DEXTROSE 10% 250 ML BAG IV PRN (09:03)
[2020-03-14] MEDS ORDERED: ZALEPLON 5 MG CAPSULE PO PRN (09:03)
[2020-03-14] MEDS ORDERED: DEXTROSE 50% 25 GM/50 ML VIAL IV PRN (09:03)
[2020-03-14] MEDS ORDERED: GLUCAGON 1 MG VIAL IM PRN ×2 (09:03)
[2020-03-14] MEDS ORDERED: POTASSIUM CHLORIDE 20 MEQ TABLET PO PRN (09:03)
[2020-03-14] MEDS ORDERED: MORPHINE 4 MG/1 ML VIAL IV PRN (09:03)
[2020-03-14] MEDS ORDERED: MAGNESIUM SULF RIDER 4 GM in PREMIX 1 EACH IV PRN (09:03)
[2020-03-14] MEDS ORDERED: WARFARIN 5 MG TABLET PO SCH (09:03)
[2020-03-14] MEDS ORDERED: SODIUM CHLOR 0.45% KCL 20 MEQ 20 MEQ/1,000 ML BAG IV SCH (09:03)
[2020-03-14] MEDS ORDERED: ACETAMINOPHEN 325 MG TABLET PO PRN (09:03)
[2020-03-14] MEDS ORDERED: ASPIRIN EC 325 MG TABLET PO SCH (09:03)
[2020-03-14] MEDS ORDERED: MAGNESIUM SULF RIDER 2 GM in PREMIX 1 EACH IV PRN (09:03)
[2020-03-14] MEDS ORDERED: ALUMINUM/MAGNES/SIMETH MAX STR 30 ML UDCUP PO PRN (09:03)
[2020-03-14] MEDS ORDERED: MAGNESIUM HYDROXIDE SUSP 30 ML UDCUP PO PRN (09:03)
[2020-03-14] MEDS: PANTOPRAZOLE 40 MG TABLET PO SCH (10:11)
[2020-03-14] MEDS: FERROUS SULFATE 325 MG TABLET PO SCH (10:12)
[2020-03-14] MEDS: ASCORBIC ACID 500 MG TABLET PO SCH ×2 (10:12→20:49)
[2020-03-14] MEDS: DOCUSATE SODIUM 100 MG CAPSULE PO SCH (10:12)
[2020-03-14] MEDS: oxyCODONE/ACETAMINOPHEN 5-325 MG TABLET PO PRN (10:12)
[2020-03-14] MEDS: SPIRONOLACTONE 25 MG TABLET PO SCH (10:12)
[2020-03-14] MEDS ORDERED: ASPIRIN EC 81 MG TABLET PO SCH (10:16)
[2020-03-14] MEDS: INSULIN LISPRO 100 UNIT/ML SUBCUT SCH ×3 (11:50→20:49)
[2020-03-14] MEDS: ONDANSETRON 4 MG/2 ML VIAL IV PRN (14:00)
[2020-03-14] MEDS: ROSUVASTATIN 20 MG TABLET PO SCH (20:49)
[2020-03-15 05:17] LABS: Basophils % 0.1 % (0.0-0.8); Hematocrit 35.1 VOL% (42.0-52.0); Hemoglobin 10.9 GM/DL (14.0-18.0); Immature Granulocytes % 0.7 %; Immature Granulocytes Absolute 0.13 #; Lymphocytes # 1.2 10*3/uL (1.4-4.0); Lymphocytes % 6.8 % (21.2-54.2); Mean Corpuscular HGB Conc 31.1 GM/DL (32-36); Mean Corpuscular Volume 94.6 FL (87-102); Mean Platelet Volume 10.3 FL (9.6-12.0); Monocytes % 7.5 % (1.7-12.7); Neutrophils % 84.9 % (38.7-73.9); Platelet Count 209 T/CUMM (130-400); Red Blood Count 3.71 MC/CUMM (3.8-5.5); Red Cell Distribution Width 17.4 % (9.3-17.3); White Blood Count 17.6 T/CUMM (4-12)
[2020-03-15 05:55] LABS: Bilirubin,Direct 0.26 MG/DL (0.0-0.20); Bilirubin,Indirect 0.3 MG/DL (0.0-1.0); Bilirubin,Total 0.6 MG/DL (0.2-1.0); Osmolality,Calculated 282.1 MOS/KG (273-304)
[2020-03-15] MEDS ORDERED: FUROSEMIDE 40 MG/4 ML VIAL IV ONE (06:00)
[2020-03-15] MEDS: INSULIN LISPRO 100 UNIT/ML SUBCUT SCH ×4 (09:24→20:35)
[2020-03-15] MEDS: PANTOPRAZOLE 40 MG TABLET PO SCH (09:25)
[2020-03-15] MEDS: carvediloL 6.25 MG TABLET PO SCH ×2 (09:25→16:54)
[2020-03-15] MEDS: DOCUSATE SODIUM 100 MG CAPSULE PO SCH (09:25)
[2020-03-15] MEDS: SPIRONOLACTONE 25 MG TABLET PO SCH (09:25)
[2020-03-15] MEDS: ASCORBIC ACID 500 MG TABLET PO SCH ×2 (09:25→20:34)
[2020-03-15] MEDS: FERROUS SULFATE 325 MG TABLET PO SCH (09:25)
[2020-03-15] MEDS: ISOSORBIDE MONONITRATE 30 MG TABLET PO SCH (10:42)
[2020-03-15] MEDS: oxyCODONE/ACETAMINOPHEN 5-325 MG TABLET PO PRN ×2 (10:42→23:23)
[2020-03-15] MEDS: hydrALAZINE 25 MG TABLET PO SCH ×3 (10:42→20:34)
[2020-03-15] MEDS: CHLORHEXIDINE 0.12% ORAL RINSE 60 ML BOTTLE SWISH/SPIT SCH ×2 (10:47→20:34)
[2020-03-15] MEDS: ROSUVASTATIN 20 MG TABLET PO SCH (20:34)
[2020-03-16 05:44] LABS: Basophils % 0.1 % (0.0-0.8); Eosinophils # 0.1 10*3/uL (0.0-0.87); Eosinophils % 0.6 % (0.00-10.9); Hematocrit 31.8 VOL% (42.0-52.0); Hemoglobin 9.9 GM/DL (14.0-18.0); Immature Granulocytes % 0.5 %; Immature Granulocytes Absolute 0.08 #; Lymphocytes # 2.6 10*3/uL (1.4-4.0); Lymphocytes % 16.4 % (21.2-54.2); Mean Corpuscular HGB Conc 31.1 GM/DL (32-36); Mean Corpuscular Volume 93.5 FL (87-102); Mean Platelet Volume 10.7 FL (9.6-12.0); Monocytes % 8.3 % (1.7-12.7); Neutrophils % 74.1 % (38.7-73.9); Platelet Count 180 T/CUMM (130-400); Red Cell Distribution Width 16.7 % (9.3-17.3); White Blood Count 15.7 T/CUMM (4-12)
[2020-03-16 06:20] LABS: Albumin 2.8 G/DL (3.4-5.0); Bilirubin,Direct 0.21 MG/DL (0.0-0.20); Bilirubin,Indirect 0.3 MG/DL (0.0-1.0); Bilirubin,Total 0.5 MG/DL (0.2-1.0); Osmolality,Calculated 277.2 MOS/KG (273-304); Total Protein 6.6 G/DL (6.4-8.3)
[2020-03-16] MEDS: INSULIN LISPRO 100 UNIT/ML SUBCUT SCH ×4 (09:10→21:00)
[2020-03-16] MEDS: PANTOPRAZOLE 40 MG TABLET PO SCH (09:11)
[2020-03-16] MEDS: carvediloL 6.25 MG TABLET PO SCH ×2 (09:11→16:40)
[2020-03-16] MEDS: SPIRONOLACTONE 25 MG TABLET PO SCH (09:11)
[2020-03-16] MEDS: ASPIRIN EC 325 MG TABLET PO SCH (09:11)
[2020-03-16] MEDS: hydrALAZINE 25 MG TABLET PO SCH ×4 (09:11→20:59)
[2020-03-16] MEDS: DOCUSATE SODIUM 100 MG CAPSULE PO SCH (09:11)
[2020-03-16] MEDS: ASCORBIC ACID 500 MG TABLET PO SCH ×2 (09:11→20:59)
[2020-03-16] MEDS: FERROUS SULFATE 325 MG TABLET PO SCH (09:11)
[2020-03-16] MEDS: ISOSORBIDE MONONITRATE 30 MG TABLET PO SCH (09:11)
[2020-03-16] MEDS: CHLORHEXIDINE 0.12% ORAL RINSE 60 ML BOTTLE SWISH/SPIT SCH ×2 (09:12→20:59)
[2020-03-16] MEDS: ROSUVASTATIN 20 MG TABLET PO SCH (20:59)
[2020-03-17 08:04] LABS: Basophils % 0.2 % (0.0-0.8); Eosinophils # 0.7 10*3/uL (0.0-0.87); Eosinophils % 5.1 % (0.00-10.9); Hematocrit 31.3 VOL% (42.0-52.0); Immature Granulocytes % 0.6 %; Immature Granulocytes Absolute 0.08 #; Lymphocytes # 2.3 10*3/uL (1.4-4.0); Lymphocytes % 17.6 % (21.2-54.2); Mean Corpuscular HGB Conc 31.9 GM/DL (32-36); Mean Corpuscular Volume 91.8 FL (87-102); Mean Platelet Volume 10.8 FL (9.6-12.0); Monocytes % 8.8 % (1.7-12.7); Neutrophils % 67.7 % (38.7-73.9); Platelet Count 191 T/CUMM (130-400); Red Blood Count 3.41 MC/CUMM (3.8-5.5); Red Cell Distribution Width 16.2 % (9.3-17.3)
[2020-03-17] MEDS: INSULIN LISPRO 100 UNIT/ML SUBCUT SCH ×4 (08:20→20:48)
[2020-03-17] MEDS: ASPIRIN EC 325 MG TABLET PO SCH (09:01)
[2020-03-17] MEDS: SPIRONOLACTONE 25 MG TABLET PO SCH (09:01)
[2020-03-17] MEDS: PANTOPRAZOLE 40 MG TABLET PO SCH (09:02)
[2020-03-17] MEDS: ISOSORBIDE MONONITRATE 30 MG TABLET PO SCH (09:02)
[2020-03-17] MEDS: FERROUS SULFATE 325 MG TABLET PO SCH (09:02)
[2020-03-17] MEDS: hydrALAZINE 25 MG TABLET PO SCH ×3 (09:02→20:46)
[2020-03-17] MEDS: ASCORBIC ACID 500 MG TABLET PO SCH ×2 (09:02→20:46)
[2020-03-17] MEDS: carvediloL 6.25 MG TABLET PO SCH ×2 (09:02→16:05)
[2020-03-17] MEDS: DOCUSATE SODIUM 100 MG CAPSULE PO SCH (09:02)
[2020-03-17] MEDS: CHLORHEXIDINE 0.12% ORAL RINSE 60 ML BOTTLE SWISH/SPIT SCH ×2 (09:28→20:48)
[2020-03-17] MEDS: ROSUVASTATIN 20 MG TABLET PO SCH (20:46)
[2020-03-18] MEDS: oxyCODONE/ACETAMINOPHEN 5-325 MG TABLET PO PRN (01:58)
[2020-03-18 05:45] LABS: Basophils % 0.1 % (0.0-0.8); Eosinophils # 0.7 10*3/uL (0.0-0.87); Eosinophils % 4.8 % (0.00-10.9); Hematocrit 32.9 VOL% (42.0-52.0); Hemoglobin 10.2 GM/DL (14.0-18.0); Immature Granulocytes % 0.7 %; Immature Granulocytes Absolute 0.09 #; Lymphocytes # 2.2 10*3/uL (1.4-4.0); Lymphocytes % 15.9 % (21.2-54.2); Mean Corpuscular Volume 95.4 FL (87-102); Mean Platelet Volume 10.8 FL (9.6-12.0); Neutrophils % 70.5 % (38.7-73.9); Platelet Count 224 T/CUMM (130-400); Red Blood Count 3.45 MC/CUMM (3.8-5.5); Red Cell Distribution Width 16.2 % (9.3-17.3); White Blood Count 13.6 T/CUMM (4-12)
[2020-03-18 06:06] LABS: Alanine Aminotransferase 24 U/L (16-61); Albumin 2.8 G/DL (3.4-5.0); Alkaline Phosphatase 67 U/L (45-117); Aspartate Amino Transferase 41 U/L (0-37); Blood Urea Nitrogen 37 MG/DL (7-18); Calcium 8.5 MG/DL (8.5-10.1); Estimated Glom Filtration Rate 47 ML/MIN; Glucose 102 MG/DL (74-106); Osmolality,Calculated 281.8 MOS/KG (273-304); Total Protein 6.5 G/DL (6.4-8.3)
[2020-03-18] MEDS: INSULIN LISPRO 100 UNIT/ML SUBCUT SCH ×2 (07:54→12:40)
[2020-03-18] MEDS ORDERED: carvediloL 12.5 MG TABLET PO SCH ×2 (09:00)
[2020-03-18] MEDS ORDERED: carvediloL 25 MG TABLET PO SCH (09:00)
[2020-03-18] MEDS: hydrALAZINE 25 MG TABLET PO SCH (09:02)
[2020-03-18] MEDS: ISOSORBIDE MONONITRATE 30 MG TABLET PO SCH (09:02)
[2020-03-18] MEDS: FERROUS SULFATE 325 MG TABLET PO SCH (09:03)
[2020-03-18] MEDS: ASCORBIC ACID 500 MG TABLET PO SCH (09:03)
[2020-03-18] MEDS: DOCUSATE SODIUM 100 MG CAPSULE PO SCH (09:03)
[2020-03-18] MEDS: PANTOPRAZOLE 40 MG TABLET PO SCH (09:03)
[2020-03-18] MEDS: ASPIRIN EC 325 MG TABLET PO SCH (09:03)
[2020-03-18] MEDS: SPIRONOLACTONE 25 MG TABLET PO SCH (09:03)
[2020-03-18] MEDS: CHLORHEXIDINE 0.12% ORAL RINSE 60 ML BOTTLE SWISH/SPIT SCH ×2 (09:07→20:22)
[2020-03-18] MEDS: ONDANSETRON 4 MG/2 ML VIAL IV PRN (09:53)
[2020-03-18] MEDS ORDERED: PHENYLEPHRINE DRIP 40 MG/250 ML PREMIX IV ONE (10:16)
[2020-03-18] MEDS ORDERED: PAPAVERINE 60 MG/2 ML VIAL ONE (10:21)
[2020-03-18] MEDS ORDERED: VANCOMYCIN 1,000 MG VIAL ONE (10:21)
[2020-03-18] MEDS: ALBUTEROL/IPRATROPIUM 3 ML NEB RESP TX SCH ×3 (10:53→20:14)
[2020-03-18] MEDS ORDERED: EPINEPHrine 1 MG/ML VIAL ONE ×2 (11:43→12:31)
[2020-03-18] MEDS ORDERED: MIDAZOLAM 2 MG/2 ML VIAL IV PRN (11:58)
[2020-03-18] MEDS ORDERED: MAGNESIUM SULF RIDER 4 GM in PREMIX 1 EACH IV PRN (11:58)
[2020-03-18] MEDS ORDERED: INSULIN REGULAR 100 UNIT/ML IV PRN (11:58)
[2020-03-18] MEDS ORDERED: CALCIUM CHLORIDE 1,000 MG/10 ML SYRINGE IV PRN (11:58)
[2020-03-18] MEDS ORDERED: MIDAZOLAM 10 MG/2 ML VIAL IV PRN (11:58)
[2020-03-18] MEDS ORDERED: VECURONIUM 10 MG VIAL IV PRN ×2 (11:58)
[2020-03-18] MEDS ORDERED: INSULIN REGULAR 100 UNIT/ML IV ONE (11:58)
[2020-03-18] MEDS ORDERED: CHLORHEXIDINE 4% SOLN 118 ML BOTTLE TOP PRN (11:58)
[2020-03-18] MEDS ORDERED: NITROPRUSSIDE 100 MG in DEXTROSE 5% 250 ML IV PRN (11:58)
[2020-03-18] MEDS ORDERED: POTASSIUM CHLORIDE RIDER 10 MEQ in PREMIX 1 EACH IV PRN (11:58)
[2020-03-18] MEDS ORDERED: LACTATED RINGERS 250 ML IV PRN (11:58)
[2020-03-18] MEDS ORDERED: MAGNESIUM SULF RIDER 2 GM in PREMIX 1 EACH IV PRN (11:58)
[2020-03-18 12:00] LABS: ABG HCO3 25.4 MMOL/L (20-26); ABG Oxygen Saturation 99.7 % (95-100); ABG PCO2 45.1 MM HG (35-48); ABG PH 7.375 (7.35-7.45); ABG TCO2 24.8 MMOL/L (23-27); Glucose Heart Surgery 187 MG/DL (74-106); Hematocrit Heart Surgery 23.1 PERCENT (42-52); Hemoglobin Heart Surgery 7.4 G/DL (14.0-18.0); Potassium Heart/CVR 4.3 MMOL/L (3.5-5.1)
[2020-03-18] MEDS ORDERED: INSULIN REGULAR DRIP 100 ML IV SCH (12:00)
[2020-03-18] MEDS ORDERED: DEXTROSE 10% 250 ML BAG IV PRN ×2 (12:03)
[2020-03-18 12:26] LABS: Albumin 2.2 G/DL (3.4-5.0); Bilirubin,Total 0.6 MG/DL (0.2-1.0); Calcium 8.3 MG/DL (8.5-10.1)
[2020-03-18] MEDS ORDERED: ALBUMIN 5% 12.5 GM/250 ML VIAL IV ONE (12:30)
[2020-03-18] MEDS ORDERED: SEVOFLURANE 1 UNIT/15 MINUTE INH ONE (12:30)
[2020-03-18] MEDS ORDERED: EPINEPHrine 1 MG/10 ML SYRINGE ONE (12:30)
[2020-03-18] MEDS ORDERED: SUFentanil 250 MCG/5 ML AMP ONE (12:30)
[2020-03-18] MEDS ORDERED: MIDAZOLAM 10 MG/2 ML VIAL ONE (12:30)
[2020-03-18] MEDS ORDERED: SODIUM BICARBONATE 50 MEQ/50 ML VIAL IV ONE (12:30)
[2020-03-18] MEDS ORDERED: SODIUM CHLORIDE 0.9% 100 ML IV ONE (12:31)
[2020-03-18] MEDS ORDERED: ETOMIDATE 40 MG/20 ML VIAL IV ONE (12:31)
[2020-03-18] MEDS ORDERED: SUCCINYLCHOLINE 200 MG/10 ML VIAL ONE (12:31)
[2020-03-18] MEDS ORDERED: VECURONIUM 10 MG VIAL IV ONE (12:31)
[2020-03-18] MEDS ORDERED: ePHEDrine 50 MG/ML AMP ONE (12:31)
[2020-03-18] MEDS ORDERED: LIDOCAINE 2% 5 ML VIAL ONE (12:31)
[2020-03-18] MEDS ORDERED: SODIUM CHLORIDE 0.9% 250 ML IV ONE (12:31)
[2020-03-18] MEDS ORDERED: HEPARIN/NACL 0.9% 2 UNITS/ML 500 ML IV ONE (12:32)
[2020-03-18 12:34] LABS: CKMB % 4.2 %
[2020-03-18] MEDS: SODIUM CHLORIDE 0.45% 1,000 ML IV SCH ×2 (12:37)
[2020-03-18 12:38] LABS: Troponin I 2.17 NG/ML (0.00-0.045)
[2020-03-18] MEDS: PHENYLEPHRINE DRIP 40 MG/250 ML PREMIX IV PRN (12:40)
[2020-03-18 14:50] LABS: ABG Base Excess 2.9 MMOL/L (-2.5-2.5); ABG Oxygen Saturation 99.7 % (95-100); ABG PCO2 37.6 MM HG (35-48); ABG PH 7.459 (7.35-7.45); ABG TCO2 23.9 MMOL/L (23-27); Glucose Heart Surgery 204 MG/DL (74-106); Hematocrit Heart Surgery 33.7 PERCENT (42-52); Hemoglobin Heart Surgery 10.9 G/DL (14.0-18.0); Potassium Heart/CVR 4.2 MMOL/L (3.5-5.1)
[2020-03-18 15:25] LABS: Basophils % 0.3 % (0.0-0.8); Eosinophils # 0.4 10*3/uL (0.0-0.87); Eosinophils % 3.3 % (0.00-10.9); Hematocrit 24.1 VOL% (42.0-52.0); Hemoglobin 7.5 GM/DL (14.0-18.0); Immature Granulocytes % 3.5 %; Immature Granulocytes Absolute 0.39 #; Lymphocytes # 1.3 10*3/uL (1.4-4.0); Lymphocytes % 11.9 % (21.2-54.2); Mean Corpuscular HGB Conc 31.1 GM/DL (32-36); Mean Corpuscular Volume 96.8 FL (87-102); Monocytes % 4.9 % (1.7-12.7); Neutrophils % 76.1 % (38.7-73.9); Platelet Count 171 T/CUMM (130-400); Red Blood Count 2.49 MC/CUMM (3.8-5.5); Red Cell Distribution Width 16.3 % (9.3-17.3); White Blood Count 11.2 T/CUMM (4-12)
[2020-03-18 15:31] LABS: INR 1.1; PT Patient Result 11.9 SECS (9.8-11.9); Partial Thromboplastin Time 29.3 SECS (23.9-33.8)
[2020-03-18 16:06] LABS: ABG Base Excess 2.6 MMOL/L (-2.5-2.5); ABG Oxygen Saturation 98.3 % (95-100); ABG PH 7.437 (7.35-7.45); ABG PO2 153.1 MM HG (80-95); ABG TCO2 28.3 MMOL/L (23-27); Glucose Heart Surgery 156 MG/DL (74-106); Hemoglobin Heart Surgery 10.8 G/DL (14.0-18.0); Potassium Heart/CVR 3.9 MMOL/L (3.5-5.1)
[2020-03-18 16:08] LABS: Microcytosis 2+
[2020-03-18 16:09] LABS: Hypochromasia Slight; Platelet Estimate Adequate
[2020-03-18] MEDS: POTASSIUM CHLORIDE RIDER 20 MEQ in PREMIX 1 EACH IV PRN (16:52)
[2020-03-18] MEDS: ALBUMIN 5% 12.5 GM in PREMIX 1 EACH IV PRN (17:07)
[2020-03-18 17:16] LABS: ABG Base Excess 2.7 MMOL/L (-2.5-2.5); ABG HCO3 26.9 MMOL/L (20-26); ABG Oxygen Saturation 99.2 % (95-100); ABG PCO2 42.7 MM HG (35-48); ABG PH 7.417 (7.35-7.45); ABG TCO2 24.9 MMOL/L (23-27); Glucose Heart Surgery 119 MG/DL (74-106); Hematocrit Heart Surgery 32.1 PERCENT (42-52); Hemoglobin Heart Surgery 10.4 G/DL (14.0-18.0); Potassium Heart/CVR 4.9 MMOL/L (3.5-5.1)
[2020-03-18 17:52] LABS: ABG Base Excess 3.1 MMOL/L (-2.5-2.5); ABG HCO3 27.2 MMOL/L (20-26); ABG Oxygen Saturation 99.3 % (95-100); ABG PCO2 43.4 MM HG (35-48); ABG PH 7.418 (7.35-7.45); ABG TCO2 25.3 MMOL/L (23-27); Glucose Heart Surgery 102 MG/DL (74-106); Hematocrit Heart Surgery 32.4 PERCENT (42-52); Hemoglobin Heart Surgery 10.5 G/DL (14.0-18.0); Potassium Heart/CVR 4.3 MMOL/L (3.5-5.1)
[2020-03-18] MEDS: MORPHINE 4 MG/1 ML VIAL IV PRN ×2 (18:18→20:29)
[2020-03-18 18:43] LABS: ABG Base Excess 2.7 MMOL/L (-2.5-2.5); ABG HCO3 26.8 MMOL/L (20-26); ABG Oxygen Saturation 98.2 % (95-100); ABG PCO2 47.8 MM HG (35-48); ABG PH 7.382 (7.35-7.45); ABG TCO2 25.7 MMOL/L (23-27); Glucose Heart Surgery 93 MG/DL (74-106); Hematocrit Heart Surgery 32.9 PERCENT (42-52); Hemoglobin Heart Surgery 10.7 G/DL (14.0-18.0); Potassium Heart/CVR 4.4 MMOL/L (3.5-5.1)
[2020-03-18] MEDS ORDERED: FUROSEMIDE 40 MG/4 ML VIAL IV ONE (20:12)
[2020-03-18] MEDS: INSULIN REGULAR 100 UNIT/ML SUBCUT SCH (20:17)
[2020-03-18] MEDS: CEFUROXIME INJ 1,500 MG in SYRINGE 1 EACH IV SCH (20:23)
[2020-03-18 20:39] LABS: CKMB % 4.3 %
[2020-03-18 20:41] LABS: Troponin I 2.04 NG/ML (0.00-0.045)
[2020-03-18] MEDS: MORPHINE 10 MG/1 ML VIAL IV PRN (23:12)
[2020-03-19] MEDS: ALBUTEROL/IPRATROPIUM 3 ML NEB RESP TX SCH ×4 (00:26→19:20)
[2020-03-19] MEDS: INSULIN REGULAR 100 UNIT/ML SUBCUT SCH ×6 (00:56→19:31)
[2020-03-19] MEDS: MORPHINE 10 MG/1 ML VIAL IV PRN (03:01)
[2020-03-19] MEDS ORDERED: FUROSEMIDE 40 MG/4 ML VIAL IV ONE ×2 (04:00→14:49)
[2020-03-19 04:45] LABS: ABG Base Excess 0.4 MMOL/L (-2.5-2.5); ABG Oxygen Saturation 96.4 % (95-100); ABG PCO2 52.9 MM HG (35-48); ABG PH 7.326 (7.35-7.45); ABG PO2 92.3 MM HG (80-95); ABG TCO2 28.6 MMOL/L (23-27); Glucose Heart Surgery 111 MG/DL (74-106); Hemoglobin Heart Surgery 11.4 G/DL (14.0-18.0); Potassium Heart/CVR 4.3 MMOL/L (3.5-5.1)
[2020-03-19] MEDS: POTASSIUM CHLORIDE RIDER 20 MEQ in PREMIX 1 EACH IV PRN (04:56)
[2020-03-19 05:20] LABS: Basophils # 0.1 10*3/uL (0.0-0.2); Basophils % 0.3 % (0.0-0.8); Eosinophils # 0.4 10*3/uL (0.0-0.87); Eosinophils % 2.3 % (0.00-10.9); Immature Granulocytes % 0.7 %; Immature Granulocytes Absolute 0.11 #; Lymphocytes # 1.2 10*3/uL (1.4-4.0); Mean Corpuscular HGB Conc 32.1 GM/DL (32-36); Mean Corpuscular Volume 92.9 FL (87-102); Monocytes % 9.6 % (1.7-12.7); Neutrophils % 79.1 % (38.7-73.9); Platelet Count 168 T/CUMM (130-400); Red Cell Distribution Width 16.5 % (9.3-17.3)
[2020-03-19 05:38] LABS: Hemoglobin 10.9 GM/DL (14.0-18.0); Red Blood Count 3.66 MC/CUMM (3.8-5.5); White Blood Count 15.4 T/CUMM (4-12)
[2020-03-19] MEDS: ONDANSETRON 4 MG/2 ML VIAL IV PRN (06:26)
[2020-03-19 06:45] LABS: Bilirubin,Direct 0.34 MG/DL (0.0-0.20); Bilirubin,Total 1.3 MG/DL (0.2-1.0); Total Protein 6.5 G/DL (6.4-8.3)
[2020-03-19 06:48] LABS: Albumin 3.1 G/DL (3.4-5.0); Bilirubin,Direct 0.34 MG/DL (0.0-0.20); Bilirubin,Total 0.7 MG/DL (0.2-1.0); CKMB % 3.6 %; Calcium 8.1 MG/DL (8.5-10.1); Osmolality,Calculated 288.4 MOS/KG (273-304); Total Protein 6.1 G/DL (6.4-8.3)
[2020-03-19 06:49] LABS: Troponin I 1.98 NG/ML (0.00-0.045)
[2020-03-19] MEDS: CEFUROXIME INJ 1,500 MG in SYRINGE 1 EACH IV SCH ×2 (07:31→20:01)
[2020-03-19] MEDS: ASPIRIN EC 325 MG TABLET PO SCH (08:55)
[2020-03-19] MEDS: PANTOPRAZOLE 40 MG TABLET PO SCH (08:57)
[2020-03-19] MEDS: CHLORHEXIDINE 0.12% ORAL RINSE 60 ML BOTTLE SWISH/SPIT SCH ×2 (08:57→21:22)
[2020-03-19] MEDS: HYDROmorphone 2 MG/1 ML VIAL IV PRN (10:00)
[2020-03-19] MEDS: PHENYLEPHRINE DRIP 40 MG/250 ML PREMIX IV PRN ×3 (10:08→23:56)
[2020-03-19] MEDS: ALBUMIN 5% 12.5 GM in PREMIX 1 EACH IV PRN ×3 (10:50→14:48)
[2020-03-19] MEDS: SODIUM CHLORIDE 0.45% 1,000 ML IV SCH ×2 (11:22→15:28)
[2020-03-19] MEDS ORDERED: AMIODARONE INJ 150 MG in DEXTROSE 5% 100 ML IV ONE (12:07)
[2020-03-19] MEDS ORDERED: AMIODARONE 150 MG/3 ML VIAL ONE (12:09)
[2020-03-19] MEDS ORDERED: AMIODARONE INJ 450 MG in DEXTROSE 5% 241 ML IV SCH (12:30)
[2020-03-19 12:58] LABS: CKMB % 3.6 %
[2020-03-19 12:59] LABS: Troponin I 1.63 NG/ML (0.00-0.045)
[2020-03-19 13:27] LABS: ABG Base Excess -1.8 MMOL/L (-2.5-2.5); ABG HCO3 22.9 MMOL/L (20-26); ABG Oxygen Saturation 98.3 % (95-100); ABG PCO2 51.8 MM HG (35-48); ABG PH 7.295 (7.35-7.45); ABG TCO2 23.2 MMOL/L (23-27); Glucose Heart Surgery 119 MG/DL (74-106); Hematocrit Heart Surgery 31.3 PERCENT (42-52); Hemoglobin Heart Surgery 10.1 G/DL (14.0-18.0); Potassium Heart/CVR 4.6 MMOL/L (3.5-5.1)
[2020-03-19 15:09] LABS: Hematocrit Heart Surgery 29.2 PERCENT (42-52); Hemoglobin Heart Surgery 9.4 G/DL (14.0-18.0); PCO2 Patient Temp Venous 63.2 MM HG; PH Patient Temp Venous 7.254; PO2 Patient Temp Venous 32.8 MM HG; Potassium Heart/CVR 4.5 MMOL/L (3.5-5.1); VBG Base Excess -0.3 MEQ/L (0-4); VBG HCO3 23.5 MEQ/L (24-28); VBG Oxygen Saturation 56.2 %; VBG PCO2 63.2 MMHG (41-51); VBG PH 7.254; VBG PO2 32.8 MMHG (17-40)
[2020-03-19 15:50] LABS: Hematocrit 29.7 VOL% (42.0-52.0); Hemoglobin 9.1 GM/DL (14.0-18.0)
[2020-03-19] MEDS ORDERED: DOBUTamine 500 MG/250 ML PREMIX IV ONE (16:14)
[2020-03-19] MEDS: DOBUTamine 500 MG/250 ML PREMIX IV SCH (16:25)
[2020-03-19] MEDS: AMIODARONE 200 MG TABLET PO SCH ×2 (17:13→21:22)
[2020-03-19] MEDS ORDERED: AMIODARONE 200 MG TABLET PO SCH (21:00)
[2020-03-19] MEDS: ROSUVASTATIN 20 MG TABLET PO SCH (21:22)
[2020-03-19] MEDS: ASCORBIC ACID 500 MG TABLET PO SCH (21:22)
[2020-03-20] MEDS: ALBUTEROL/IPRATROPIUM 3 ML NEB RESP TX SCH ×4 (00:55→19:44)
[2020-03-20] MEDS: SODIUM CHLORIDE 0.45% 1,000 ML IV SCH ×3 (02:29→22:00)
[2020-03-20] MEDS: INSULIN REGULAR 100 UNIT/ML SUBCUT SCH ×6 (04:45→20:42)
[2020-03-20 04:50] LABS: Basophils # 0.1 10*3/uL (0.0-0.2); Basophils % 0.4 % (0.0-0.8); Eosinophils # 0.8 10*3/uL (0.0-0.87); Eosinophils % 4.8 % (0.00-10.9); Hematocrit 32.9 VOL% (42.0-52.0); Hemoglobin 10.6 GM/DL (14.0-18.0); Immature Granulocytes % 0.8 %; Immature Granulocytes Absolute 0.13 #; Lymphocytes # 1.3 10*3/uL (1.4-4.0); Lymphocytes % 7.8 % (21.2-54.2); Mean Corpuscular HGB Conc 32.2 GM/DL (32-36); Mean Corpuscular Volume 92.4 FL (87-102); Mean Platelet Volume 10.7 FL (9.6-12.0); Monocytes % 6.5 % (1.7-12.7); Neutrophils % 79.7 % (38.7-73.9); Platelet Count 133 T/CUMM (130-400); Red Blood Count 3.56 MC/CUMM (3.8-5.5); Red Cell Distribution Width 16.4 % (9.3-17.3); White Blood Count 16.4 T/CUMM (4-12)
[2020-03-20 05:03] LABS: Bilirubin,Direct 0.54 MG/DL (0.0-0.20); Bilirubin,Total 1.3 MG/DL (0.2-1.0); Calcium 8.1 MG/DL (8.5-10.1); Osmolality,Calculated 274.4 MOS/KG (273-304); Total Protein 6.1 G/DL (6.4-8.3)
[2020-03-20 05:22] LABS: Calcium 7.8 MG/DL (8.5-10.1); Osmolality,Calculated 275.2 MOS/KG (273-304)
[2020-03-20] MEDS: POTASSIUM CHLORIDE RIDER 20 MEQ in PREMIX 1 EACH IV PRN (05:38)
[2020-03-20 06:14] LABS: Anisocytosis Slight; Platelet Estimate Adequate
[2020-03-20] MEDS: ASCORBIC ACID 500 MG TABLET PO SCH ×2 (08:40→20:44)
[2020-03-20] MEDS: THEOPHYLLINE ER 300 MG TABLET PO SCH ×2 (08:40→17:05)
[2020-03-20] MEDS: PANTOPRAZOLE 40 MG TABLET PO SCH (08:40)
[2020-03-20] MEDS: ASPIRIN EC 325 MG TABLET PO SCH (08:40)
[2020-03-20] MEDS: AMIODARONE 200 MG TABLET PO SCH ×2 (08:40→20:44)
[2020-03-20] MEDS: CHLORHEXIDINE 0.12% ORAL RINSE 60 ML BOTTLE SWISH/SPIT SCH ×2 (08:50→20:45)
[2020-03-20] MEDS: PHENYLEPHRINE DRIP 40 MG/250 ML PREMIX IV PRN (11:35)
[2020-03-20] MEDS: DOBUTamine 500 MG/250 ML PREMIX IV SCH (17:08)
[2020-03-20] MEDS: ROSUVASTATIN 20 MG TABLET PO SCH (20:44)
[2020-03-21] MEDS: INSULIN REGULAR 100 UNIT/ML SUBCUT SCH ×6 (00:05→20:25)
[2020-03-21] MEDS: ALBUTEROL/IPRATROPIUM 3 ML NEB RESP TX SCH ×4 (00:46→19:15)
[2020-03-21] MEDS: SODIUM CHLORIDE 0.45% 1,000 ML IV SCH ×2 (01:45→12:00)
[2020-03-21 04:16] LABS: ABG Base Excess -1.5 MMOL/L (-2.5-2.5); ABG HCO3 23.7 MMOL/L (20-26); ABG Oxygen Saturation 79.6 % (95-100); ABG PCO2 41.8 MM HG (35-48); ABG PH 7.371 (7.35-7.45)
[2020-03-21 05:03] LABS: ABG HCO3 21.9 MMOL/L (20-26); ABG Oxygen Saturation 98.3 % (95-100); ABG PCO2 36.1 MM HG (35-48); ABG PH 7.385 (7.35-7.45); ABG PO2 99.3 MM HG (80-95); ABG TCO2 19.8 MMOL/L (23-27)
[2020-03-21 05:12] LABS: Basophils % 0.3 % (0.0-0.8); Eosinophils # 0.6 10*3/uL (0.0-0.87); Eosinophils % 4.8 % (0.00-10.9); Hematocrit 31.2 VOL% (42.0-52.0); Hemoglobin 10.1 GM/DL (14.0-18.0); Immature Granulocytes % 0.8 %; Lymphocytes % 8.4 % (21.2-54.2); Mean Corpuscular HGB Conc 32.4 GM/DL (32-36); Mean Corpuscular Volume 92.3 FL (87-102); Mean Platelet Volume 10.6 FL (9.6-12.0); Monocytes % 8.4 % (1.7-12.7); Neutrophils % 77.3 % (38.7-73.9); Platelet Count 132 T/CUMM (130-400); Red Blood Count 3.38 MC/CUMM (3.8-5.5); Red Cell Distribution Width 16.1 % (9.3-17.3)
[2020-03-21 05:28] LABS: Albumin 2.5 G/DL (3.4-5.0); Bilirubin,Direct 0.36 MG/DL (0.0-0.20); Bilirubin,Total 1.2 MG/DL (0.2-1.0); Calcium 8.2 MG/DL (8.5-10.1); Osmolality,Calculated 270.7 MOS/KG (273-304); Total Protein 5.9 G/DL (6.4-8.3)
[2020-03-21 05:51] LABS: Hypochromasia Slight; Platelet Estimate Adequate
[2020-03-21] MEDS ORDERED: AMIODARONE INJ 100 MG in DEXTROSE 5% 100 ML IV ONE (06:30)
[2020-03-21] MEDS: POTASSIUM CHLORIDE RIDER 20 MEQ in PREMIX 1 EACH IV PRN (06:49)
[2020-03-21] MEDS: AMIODARONE INJ 450 MG in DEXTROSE 5% 241 ML IV SCH ×2 (06:55→21:54)
[2020-03-21] MEDS: AMIODARONE 200 MG TABLET PO SCH (09:00)
[2020-03-21] MEDS: THEOPHYLLINE ER 300 MG TABLET PO SCH ×2 (09:05→16:05)
[2020-03-21] MEDS: ASPIRIN EC 325 MG TABLET PO SCH (09:05)
[2020-03-21] MEDS: FUROSEMIDE 40 MG/4 ML VIAL IV SCH ×2 (09:05→16:05)
[2020-03-21] MEDS: ASCORBIC ACID 500 MG TABLET PO SCH ×2 (09:05→20:26)
[2020-03-21] MEDS: PANTOPRAZOLE 40 MG TABLET PO SCH (09:05)
[2020-03-21] MEDS: APIXABAN 2.5 MG TABLET PO SCH ×2 (09:05→20:26)
[2020-03-21] MEDS: CHLORHEXIDINE 0.12% ORAL RINSE 60 ML BOTTLE SWISH/SPIT SCH ×2 (09:30→20:26)
[2020-03-21] MEDS ORDERED: SODIUM CHLORIDE 0.45% 1,000 ML IV SCH (11:30)
[2020-03-21] MEDS: methylPREDNISolone SOD SUC 40 MG/1 ML VIAL IV SCH (12:00)
[2020-03-21] MEDS: HYDROmorphone 2 MG/1 ML VIAL IV PRN (14:45)
[2020-03-21] MEDS: ONDANSETRON 4 MG/2 ML VIAL IV PRN (16:20)
[2020-03-21] MEDS: ROSUVASTATIN 20 MG TABLET PO SCH (20:26)
[2020-03-22] MEDS: methylPREDNISolone SOD SUC 40 MG/1 ML VIAL IV SCH ×3 (00:28→23:36)
[2020-03-22] MEDS: INSULIN REGULAR 100 UNIT/ML SUBCUT SCH ×3 (00:28→09:30)
[2020-03-22 04:57] LABS: Hematocrit 34.4 VOL% (42.0-52.0); Hemoglobin 11.4 GM/DL (14.0-18.0); Mean Corpuscular HGB Conc 33.1 GM/DL (32-36); Mean Platelet Volume 10.5 FL (9.6-12.0); Platelet Count 164 T/CUMM (130-400); Red Blood Count 3.78 MC/CUMM (3.8-5.5); Red Cell Distribution Width 15.6 % (9.3-17.3); White Blood Count 9.8 T/CUMM (4-12)
[2020-03-22 04:58] LABS: Basophils % 0.2 % (0.0-0.8); Immature Granulocytes % 0.9 %; Immature Granulocytes Absolute 0.09 #; Lymphocytes # 0.5 10*3/uL (1.4-4.0); Lymphocytes % 5.1 % (21.2-54.2); Monocytes % 4.2 % (1.7-12.7); Neutrophils % 89.6 % (38.7-73.9)
[2020-03-22 05:41] LABS: Calcium 8.4 MG/DL (8.5-10.1); Osmolality,Calculated 275.7 MOS/KG (273-304)
[2020-03-22] MEDS: POTASSIUM CHLORIDE RIDER 20 MEQ in PREMIX 1 EACH IV PRN ×2 (05:55→06:56)
[2020-03-22] MEDS: AMIODARONE 200 MG TABLET PO SCH ×3 (07:57→21:47)
[2020-03-22] MEDS: ALBUTEROL/IPRATROPIUM 3 ML NEB RESP TX SCH ×4 (08:20→19:10)
[2020-03-22] MEDS ORDERED: MAGNESIUM SULF RIDER 4 GM in PREMIX 1 EACH IV PRN (08:52)
[2020-03-22] MEDS ORDERED: ZALEPLON 5 MG CAPSULE PO PRN (08:52)
[2020-03-22] MEDS ORDERED: MAGNESIUM SULF RIDER 2 GM in PREMIX 1 EACH IV PRN (08:52)
[2020-03-22] MEDS ORDERED: ONDANSETRON 4 MG/2 ML VIAL IV PRN (08:52)
[2020-03-22] MEDS ORDERED: GLUCAGON 1 MG VIAL IM PRN (08:52)
[2020-03-22] MEDS ORDERED: MAGNESIUM HYDROXIDE SUSP 30 ML UDCUP PO PRN (08:52)
[2020-03-22] MEDS ORDERED: ALUMINUM/MAGNES/SIMETH MAX STR 30 ML UDCUP PO PRN (08:52)
[2020-03-22] MEDS ORDERED: DEXTROSE 50% 25 GM/50 ML VIAL IV PRN (08:52)
[2020-03-22] MEDS: FUROSEMIDE 40 MG/4 ML VIAL IV SCH ×2 (09:23→16:42)
[2020-03-22] MEDS: ASPIRIN EC 325 MG TABLET PO SCH (09:23)
[2020-03-22] MEDS: APIXABAN 2.5 MG TABLET PO SCH ×2 (09:23→21:47)
[2020-03-22] MEDS: ASCORBIC ACID 500 MG TABLET PO SCH ×2 (09:23→21:47)
[2020-03-22] MEDS: CHLORHEXIDINE 0.12% ORAL RINSE 60 ML BOTTLE SWISH/SPIT SCH ×2 (09:23→10:13)
[2020-03-22] MEDS: THEOPHYLLINE ER 300 MG TABLET PO SCH ×2 (09:23→16:40)
[2020-03-22] MEDS: POTASSIUM CHLORIDE 20 MEQ TABLET PO PRN (09:23)
[2020-03-22] MEDS: FERROUS SULFATE 325 MG TABLET PO SCH (09:46)
[2020-03-22] MEDS: SODIUM CHLOR 0.45% KCL 20 MEQ 20 MEQ/1,000 ML BAG IV SCH (09:58)
[2020-03-22] MEDS: DOCUSATE SODIUM 100 MG CAPSULE PO SCH (09:58)
[2020-03-22] MEDS: PANTOPRAZOLE 40 MG TABLET PO SCH (09:58)
[2020-03-22] MEDS: carvediloL 3.125 MG TABLET PO SCH (21:47)
[2020-03-22] MEDS: ROSUVASTATIN 20 MG TABLET PO SCH (21:47)
[2020-03-23] MEDS: ALBUTEROL/IPRATROPIUM 3 ML NEB RESP TX SCH ×4 (00:40→19:30)
[2020-03-23 06:21] LABS: Basophils # 0.1 10*3/uL (0.0-0.2); Basophils % 0.3 % (0.0-0.8); Eosinophils % 0.3 % (0.00-10.9); Hematocrit 36.8 VOL% (42.0-52.0); Hemoglobin 12.1 GM/DL (14.0-18.0); Immature Granulocytes % 0.9 %; Immature Granulocytes Absolute 0.14 #; Lymphocytes # 1.1 10*3/uL (1.4-4.0); Lymphocytes % 7.2 % (21.2-54.2); Mean Corpuscular HGB Conc 32.9 GM/DL (32-36); Mean Corpuscular Volume 91.5 FL (87-102); Mean Platelet Volume 10.9 FL (9.6-12.0); Monocytes % 8.6 % (1.7-12.7); Neutrophils % 82.7 % (38.7-73.9); Platelet Count 213 T/CUMM (130-400); Red Blood Count 4.02 MC/CUMM (3.8-5.5); Red Cell Distribution Width 15.9 % (9.3-17.3); White Blood Count 15.9 T/CUMM (4-12)
[2020-03-23] MEDS ORDERED: AMIODARONE INJ 100 MG in DEXTROSE 5% 100 ML IV ONE (06:30)
[2020-03-23 06:35] LABS: Osmolality,Calculated 276.5 MOS/KG (273-304)
[2020-03-23 06:47] LABS: Alanine Aminotransferase 93 U/L (16-61); Albumin 2.7 G/DL (3.4-5.0); Alkaline Phosphatase 120 U/L (45-117); Aspartate Amino Transferase 130 U/L (0-37); Bilirubin,Indirect 0.4 MG/DL (0.0-1.0); Blood Urea Nitrogen 49 MG/DL (7-18); Calcium 8.7 MG/DL (8.5-10.1); Estimated Glom Filtration Rate 19 ML/MIN; Glucose 105 MG/DL (74-106); Osmolality,Calculated 276.5 MOS/KG (273-304)
[2020-03-23 06:49] LABS: Troponin I 0.467 NG/ML (0.00-0.045)
[2020-03-23] MEDS: THEOPHYLLINE ER 300 MG TABLET PO SCH ×2 (08:52→16:54)
[2020-03-23] MEDS: ASPIRIN EC 325 MG TABLET PO SCH (08:52)
[2020-03-23] MEDS: carvediloL 3.125 MG TABLET PO SCH ×2 (08:52→21:32)
[2020-03-23] MEDS: FUROSEMIDE 40 MG/4 ML VIAL IV SCH (08:53)
[2020-03-23] MEDS: ASCORBIC ACID 500 MG TABLET PO SCH ×2 (08:53→21:32)
[2020-03-23] MEDS: POTASSIUM CHLORIDE 20 MEQ TABLET PO PRN ×2 (08:53→10:12)
[2020-03-23] MEDS: APIXABAN 2.5 MG TABLET PO SCH ×2 (08:53→21:33)
[2020-03-23] MEDS: AMIODARONE 200 MG TABLET PO SCH ×2 (08:53→21:32)
[2020-03-23] MEDS: FERROUS SULFATE 325 MG TABLET PO SCH (08:53)
[2020-03-23] MEDS: PANTOPRAZOLE 40 MG TABLET PO SCH (08:53)
[2020-03-23] MEDS: POLYETHYLENE GLYCOL POWDER 17 GM PACK PO SCH (08:53)
[2020-03-23] MEDS: DOCUSATE SODIUM 100 MG CAPSULE PO SCH (08:53)
[2020-03-23] MEDS: SODIUM CHLOR 0.45% KCL 20 MEQ 20 MEQ/1,000 ML BAG IV SCH (09:00)
[2020-03-23] MEDS: methylPREDNISolone SOD SUC 40 MG/1 ML VIAL IV SCH ×2 (11:33→23:22)
[2020-03-23] MEDS: ROSUVASTATIN 20 MG TABLET PO SCH (21:33)
[2020-03-24] MEDS: ALBUTEROL/IPRATROPIUM 3 ML NEB RESP TX SCH ×4 (00:06→19:40)
[2020-03-24 06:05] LABS: Basophils # 0.1 10*3/uL (0.0-0.2); Basophils % 0.3 % (0.0-0.8); Eosinophils # 0.1 10*3/uL (0.0-0.87); Eosinophils % 0.4 % (0.00-10.9); Hematocrit 38.2 VOL% (42.0-52.0); Hemoglobin 12.5 GM/DL (14.0-18.0); Immature Granulocytes % 0.8 %; Immature Granulocytes Absolute 0.12 #; Lymphocytes # 1.4 10*3/uL (1.4-4.0); Lymphocytes % 9.5 % (21.2-54.2); Mean Corpuscular HGB Conc 32.7 GM/DL (32-36); Mean Corpuscular Volume 89.3 FL (87-102); Mean Platelet Volume 10.9 FL (9.6-12.0); Monocytes % 9.1 % (1.7-12.7); Neutrophils % 79.9 % (38.7-73.9); Platelet Count 238 T/CUMM (130-400); Red Blood Count 4.28 MC/CUMM (3.8-5.5); Red Cell Distribution Width 15.9 % (9.3-17.3); White Blood Count 15.2 T/CUMM (4-12)
[2020-03-24 06:36] LABS: Alanine Aminotransferase 127 U/L (16-61); Albumin 2.8 G/DL (3.4-5.0); Alkaline Phosphatase 120 U/L (45-117); Aspartate Amino Transferase 138 U/L (0-37); Blood Urea Nitrogen 60 MG/DL (7-18); Calcium 8.9 MG/DL (8.5-10.1); Estimated Glom Filtration Rate 20 ML/MIN; Glucose 102 MG/DL (74-106); Osmolality,Calculated 282.4 MOS/KG (273-304); Total Protein 7.3 G/DL (6.4-8.3)
[2020-03-24 06:37] LABS: Troponin I 0.384 NG/ML (0.00-0.045)
[2020-03-24] MEDS: THEOPHYLLINE ER 300 MG TABLET PO SCH ×2 (07:57→16:31)
[2020-03-24] MEDS: POLYETHYLENE GLYCOL POWDER 17 GM PACK PO SCH (07:59)
[2020-03-24] MEDS: FERROUS SULFATE 325 MG TABLET PO SCH (07:59)
[2020-03-24] MEDS: DOCUSATE SODIUM 100 MG CAPSULE PO SCH (07:59)
[2020-03-24] MEDS: AMIODARONE 200 MG TABLET PO SCH ×2 (07:59→21:44)
[2020-03-24] MEDS: APIXABAN 2.5 MG TABLET PO SCH ×2 (07:59→21:44)
[2020-03-24] MEDS: carvediloL 3.125 MG TABLET PO SCH (07:59)
[2020-03-24] MEDS: PANTOPRAZOLE 40 MG TABLET PO SCH (07:59)
[2020-03-24] MEDS: ASCORBIC ACID 500 MG TABLET PO SCH ×2 (07:59→21:45)
[2020-03-24] MEDS: ASPIRIN EC 325 MG TABLET PO SCH (07:59)
[2020-03-24] MEDS: methylPREDNISolone SOD SUC 40 MG/1 ML VIAL IV SCH (09:38)
[2020-03-24] MEDS: carvediloL 6.25 MG TABLET PO SCH ×2 (09:38→21:44)
[2020-03-24] MEDS: ROSUVASTATIN 20 MG TABLET PO SCH (21:45)
[2020-03-25] MEDS: ALBUTEROL/IPRATROPIUM 3 ML NEB RESP TX SCH ×4 (01:45→19:35)
[2020-03-25 05:23] LABS: Basophils # 0.1 10*3/uL (0.0-0.2); Basophils % 0.5 % (0.0-0.8); Eosinophils # 0.3 10*3/uL (0.0-0.87); Eosinophils % 2.2 % (0.00-10.9); Hematocrit 37.4 VOL% (42.0-52.0); Hemoglobin 12.3 GM/DL (14.0-18.0); Immature Granulocytes % 0.6 %; Immature Granulocytes Absolute 0.09 #; Lymphocytes # 1.9 10*3/uL (1.4-4.0); Lymphocytes % 12.4 % (21.2-54.2); Mean Corpuscular HGB Conc 32.9 GM/DL (32-36); Mean Corpuscular Volume 91.2 FL (87-102); Mean Platelet Volume 10.5 FL (9.6-12.0); Monocytes % 8.9 % (1.7-12.7); Neutrophils % 75.4 % (38.7-73.9); Platelet Count 226 T/CUMM (130-400); Red Cell Distribution Width 15.8 % (9.3-17.3); White Blood Count 15.5 T/CUMM (4-12)
[2020-03-25 05:40] LABS: Calcium 8.7 MG/DL (8.5-10.1); Osmolality,Calculated 286.1 MOS/KG (273-304)
[2020-03-25] MEDS: POLYETHYLENE GLYCOL POWDER 17 GM PACK PO SCH (09:44)
[2020-03-25] MEDS: methylPREDNISolone SOD SUC 40 MG/1 ML VIAL IV SCH (09:44)
[2020-03-25] MEDS: ASPIRIN EC 325 MG TABLET PO SCH (09:45)
[2020-03-25] MEDS: DOCUSATE SODIUM 100 MG CAPSULE PO SCH (09:45)
[2020-03-25] MEDS: POTASSIUM CHLORIDE 20 MEQ TABLET PO PRN (09:45)
[2020-03-25] MEDS: PANTOPRAZOLE 40 MG TABLET PO SCH (09:45)
[2020-03-25] MEDS: THEOPHYLLINE ER 300 MG TABLET PO SCH ×2 (09:45→16:14)
[2020-03-25] MEDS: FERROUS SULFATE 325 MG TABLET PO SCH (09:45)
[2020-03-25] MEDS: AMIODARONE 200 MG TABLET PO SCH ×2 (09:46→21:51)
[2020-03-25] MEDS: carvediloL 6.25 MG TABLET PO SCH ×2 (09:46→21:51)
[2020-03-25] MEDS: ASCORBIC ACID 500 MG TABLET PO SCH ×2 (09:46→21:51)
[2020-03-25] MEDS: APIXABAN 2.5 MG TABLET PO SCH ×2 (09:46→21:51)
[2020-03-25] MEDS: ROSUVASTATIN 20 MG TABLET PO SCH (21:50)
[2020-03-26] MEDS: ALBUTEROL/IPRATROPIUM 3 ML NEB RESP TX SCH ×2 (04:32→06:56)
[2020-03-26 06:27] LABS: Basophils # 0.1 10*3/uL (0.0-0.2); Basophils % 0.4 % (0.0-0.8); Eosinophils # 0.2 10*3/uL (0.0-0.87); Hematocrit 36.3 VOL% (42.0-52.0); Hemoglobin 11.5 GM/DL (14.0-18.0); Immature Granulocytes % 0.8 %; Immature Granulocytes Absolute 0.13 #; Lymphocytes # 1.7 10*3/uL (1.4-4.0); Lymphocytes % 10.1 % (21.2-54.2); Mean Corpuscular HGB Conc 31.7 GM/DL (32-36); Mean Corpuscular Volume 94.3 FL (87-102); Mean Platelet Volume 10.9 FL (9.6-12.0); Monocytes % 7.1 % (1.7-12.7); Neutrophils % 80.6 % (38.7-73.9); Platelet Count 255 T/CUMM (130-400); Red Blood Count 3.85 MC/CUMM (3.8-5.5); White Blood Count 16.4 T/CUMM (4-12)
[2020-03-26 06:53] LABS: Alanine Aminotransferase 113 U/L (16-61); Albumin 2.7 G/DL (3.4-5.0); Alkaline Phosphatase 105 U/L (45-117); Aspartate Amino Transferase 75 U/L (0-37); Bilirubin,Indirect 0.5 MG/DL (0.0-1.0); Blood Urea Nitrogen 56 MG/DL (7-18); Calcium 8.6 MG/DL (8.5-10.1); Estimated Glom Filtration Rate 28 ML/MIN; Glucose 97 MG/DL (74-106); Osmolality,Calculated 281.4 MOS/KG (273-304); Total Protein 6.1 G/DL (6.4-8.3)
[2020-03-26] MEDS ORDERED: predniSONE 20 MG TABLET PO SCH (09:00)
[2020-03-26] MEDS: THEOPHYLLINE ER 300 MG TABLET PO SCH (09:22)
[2020-03-26] MEDS: DOCUSATE SODIUM 100 MG CAPSULE PO SCH (09:22)
[2020-03-26] MEDS: ASCORBIC ACID 500 MG TABLET PO SCH (09:22)
[2020-03-26] MEDS: carvediloL 6.25 MG TABLET PO SCH (09:23)
[2020-03-26] MEDS: PANTOPRAZOLE 40 MG TABLET PO SCH (09:23)
[2020-03-26] MEDS: APIXABAN 2.5 MG TABLET PO SCH (09:23)
[2020-03-26] MEDS: ASPIRIN EC 325 MG TABLET PO SCH (09:23)
[2020-03-26] MEDS: AMIODARONE 200 MG TABLET PO SCH (09:23)
[2020-03-26] MEDS: FERROUS SULFATE 325 MG TABLET PO SCH (09:23)
[2020-03-26] MEDS: POLYETHYLENE GLYCOL POWDER 17 GM PACK PO SCH (09:23)
[2020-03-26 12:48] VITALS: BP 120/61
== END 2020-03-26 14:24 | disposition home health service (06) | DRG 233 ==
LOC: N.CL 05:47 → N.TELEN 14:55 → N.CVR 03-13 10:07 → N.TELES 03-14 14:14 → N.CVR 03-18 10:20 → N.ICU 03-19 10:34 → N.TELES 03-22 16:58
PROVIDERS: ADMIT Internal Medicine Interventional Cardiology

== ENCOUNTER 2020-04-28 15:08 | Inpatient (IN) ==
[2020-04-28] MEDS ORDERED: methylPREDNISolone SOD SUC 125 MG/2 ML VIAL IV STA (15:37)
[2020-04-28] MEDS ORDERED: ALBUTEROL/IPRATROPIUM 3 ML NEB RESP TX STA (15:37)
[2020-04-28] MEDS ORDERED: methylPREDNISolone SOD SUC 125 MG/2 ML VIAL ONE (15:39)
[2020-04-28 15:44] LABS: Basophils # 0.1 10*3/uL (0.0-0.2); Basophils % 0.7 % (0.0-0.8); Eosinophils # 0.6 10*3/uL (0.0-0.87); Eosinophils % 6.6 % (0.00-10.9); Hematocrit 25.8 VOL% (42.0-52.0); Hemoglobin 7.7 GM/DL (14.0-18.0); Immature Granulocytes % 0.7 %; Immature Granulocytes Absolute 0.06 #; Lymphocytes % 22.2 % (21.2-54.2); Mean Corpuscular HGB Conc 29.8 GM/DL (32-36); Mean Corpuscular Volume 104.9 FL (87-102); Mean Platelet Volume 9.6 FL (9.6-12.0); Monocytes % 12.8 % (1.7-12.7); Platelet Count 301 T/CUMM (130-400); Red Blood Count 2.46 MC/CUMM (3.8-5.5); Red Cell Distribution Width 18.6 % (9.3-17.3)
[2020-04-28 16:11] LABS: Alanine Aminotransferase 42 U/L (16-61); Albumin 2.8 G/DL (3.4-5.0); Alkaline Phosphatase 143 U/L (45-117); Aspartate Amino Transferase 32 U/L (0-37); Bilirubin,Total < 0.39 MG/DL (0.2-1.0); Blood Urea Nitrogen 23 MG/DL (7-18); Calcium 8.3 MG/DL (8.5-10.1); Estimated Glom Filtration Rate 43 ML/MIN; Glucose 96 MG/DL (74-106); Osmolality,Calculated 284.3 MOS/KG (273-304); Total Protein 6.8 G/DL (6.4-8.3)
[2020-04-28 16:25] LABS: PT Patient Result 10.9 SECS (9.8-11.9)
[2020-04-28] MEDS ORDERED: CALCIUM CARBONATE CHEW 500 MG TABLET PO PRN (17:45)
[2020-04-28] MEDS ORDERED: guaiFENesin/DM ER 600-30 MG TABLET PO PRN (17:45)
[2020-04-28] MEDS ORDERED: GLUCAGON 1 MG VIAL IM PRN (17:45)
[2020-04-28] MEDS ORDERED: ALUMINUM/MAGNES/SIMETH MAX STR 30 ML UDCUP PO PRN (17:45)
[2020-04-28] MEDS ORDERED: diphenhydrAMINE CAP 25 MG CAPSULE PO PRN (17:45)
[2020-04-28] MEDS ORDERED: MAGNESIUM SULF RIDER 4 GM in PREMIX 1 EACH IV PRN (17:45)
[2020-04-28] MEDS ORDERED: ONDANSETRON 4 MG/2 ML VIAL IV PRN (17:45)
[2020-04-28] MEDS ORDERED: ALBUTEROL 2.5 MG/3 ML NEB RESP TX PRN (17:45)
[2020-04-28] MEDS ORDERED: MAGNESIUM SULF RIDER 2 GM in PREMIX 1 EACH IV PRN (17:45)
[2020-04-28] MEDS ORDERED: LACTULOSE 20 GM/30 ML UDCUP PO PRN (17:45)
[2020-04-28] MEDS ORDERED: ACETAMINOPHEN 325 MG TABLET PO PRN (17:45)
[2020-04-28] MEDS ORDERED: DEXTROSE 50% 25 GM/50 ML VIAL IV PRN (17:45)
[2020-04-28] MEDS ORDERED: traZODone 50 MG TABLET PO PRN (17:45)
[2020-04-28] MEDS ORDERED: ZALEPLON 5 MG CAPSULE PO PRN (17:45)
[2020-04-28] MEDS ORDERED: MORPHINE 4 MG/1 ML VIAL IV PRN (17:45)
[2020-04-28] MEDS ORDERED: SIMETHICONE CHEW 125 MG TABLET PO PRN (17:45)
[2020-04-28] MEDS ORDERED: hydrALAZINE 20 MG/1 ML VIAL IV PRN (17:45)
[2020-04-28] MEDS ORDERED: BISACODYL 5 MG TABLET PO PRN (17:45)
[2020-04-28] MEDS ORDERED: POTASSIUM CHLORIDE RIDER 10 MEQ in PREMIX 1 EACH IV PRN (17:45)
[2020-04-28] MEDS ORDERED: SODIUM CHLORIDE 0.9% 1,000 ML IV PRN (17:52)
[2020-04-28] MEDS ORDERED: oxyCODONE/ACETAMINOPHEN 5-325 MG TABLET PO PRN (17:54)
[2020-04-28] MEDS: ALBUTEROL/IPRATROPIUM 3 ML NEB RESP TX SCH (18:49)
[2020-04-28] MEDS ORDERED: FUROSEMIDE 40 MG/4 ML VIAL IV ONE (21:00)
[2020-04-28] MEDS: ASCORBIC ACID 500 MG TABLET PO SCH (22:20)
[2020-04-28] MEDS: DOCUSATE SODIUM 100 MG CAPSULE PO SCH (22:20)
[2020-04-28] MEDS: FLUTICASONE/SALMETEROL 250-50 DISKUS 14 DOSE INH SCH (22:41)
[2020-04-29] MEDS: ALBUTEROL/IPRATROPIUM 3 ML NEB RESP TX SCH ×3 (01:46→13:00)
[2020-04-29 05:55] LABS: Basophils % 0.2 % (0.0-0.8); Hematocrit 27.4 VOL% (42.0-52.0); Hemoglobin 8.6 GM/DL (14.0-18.0); Immature Granulocytes % 0.8 %; Immature Granulocytes Absolute 0.05 #; Lymphocytes % 15.4 % (21.2-54.2); Mean Corpuscular HGB Conc 31.4 GM/DL (32-36); Mean Corpuscular Volume 97.9 FL (87-102); Mean Platelet Volume 9.9 FL (9.6-12.0); Monocytes % 1.1 % (1.7-12.7); Neutrophils % 82.5 % (38.7-73.9); Platelet Count 272 T/CUMM (130-400); Red Cell Distribution Width 20.6 % (9.3-17.3); White Blood Count 6.2 T/CUMM (4-12)
[2020-04-29 05:58] LABS: Hematocrit 27.7 VOL% (42.0-52.0); Hemoglobin 8.5 GM/DL (14.0-18.0)
[2020-04-29 07:02] LABS: Albumin 2.6 G/DL (3.4-5.0); Bilirubin,Total 0.7 MG/DL (0.2-1.0); Calcium 8.6 MG/DL (8.5-10.1); Osmolality,Calculated 286.4 MOS/KG (273-304)
[2020-04-29 07:22] LABS: % Iron Saturation 26.5 % (18-50); Ferritin 125.9 ng/ml (26-388)
[2020-04-29 07:47] LABS: Folate 10.5 NG/ML (5.4-24.0)
[2020-04-29] MEDS: DOCUSATE SODIUM 100 MG CAPSULE PO SCH (08:48)
[2020-04-29] MEDS: carvediloL 6.25 MG TABLET PO SCH ×2 (08:49→16:01)
[2020-04-29] MEDS: FUROSEMIDE 40 MG/4 ML VIAL IV SCH ×2 (08:49→16:00)
[2020-04-29] MEDS: ASCORBIC ACID 500 MG TABLET PO SCH (08:49)
[2020-04-29] MEDS ORDERED: SPIRONOLACTONE 25 MG TABLET PO SCH (09:00)
[2020-04-29] MEDS ORDERED: PANTOPRAZOLE 40 MG TABLET PO SCH (09:00)
[2020-04-29] MEDS: FLUTICASONE/SALMETEROL 250-50 DISKUS 14 DOSE INH SCH (09:02)
[2020-04-29 16:07] VITALS: BP 98/49
[2020-04-29] MEDS ORDERED: ROSUVASTATIN 20 MG TABLET PO SCH (21:00)
[2020-04-30] MEDS ORDERED: MULTIVITAMIN (CENTRUM) TABLET PO SCH (09:00)
== END 2020-04-29 17:36 | disposition home health service (06) | DRG 812 ==
LOC: N.ED 15:08 → SUATTDRO 17:46 → N.EDINP 17:46 → N.TELEN 20:47
PROVIDERS: ADMIT Phlebology; ATTEND Hospitalist

== ENCOUNTER 2020-06-26 13:06 | Inpatient (IN) ==
[2020-06-26 14:02] LABS: Basophils # 0.1 10*3/uL (0.0-0.2); Basophils % 0.5 % (0.0-0.8); Eosinophils # 0.6 10*3/uL (0.0-0.87); Eosinophils % 5.9 % (0.00-10.9); Hematocrit 29.7 VOL% (42.0-52.0); Hemoglobin 9.1 GM/DL (14.0-18.0); Immature Granulocytes % 0.5 %; Immature Granulocytes Absolute 0.05 #; Lymphocytes # 1.6 10*3/uL (1.4-4.0); Lymphocytes % 16.1 % (21.2-54.2); Mean Corpuscular HGB Conc 30.6 GM/DL (32-36); Mean Corpuscular Volume 94.3 FL (87-102); Mean Platelet Volume 10.5 FL (9.6-12.0); Monocytes % 8.1 % (1.7-12.7); Neutrophils % 68.9 % (38.7-73.9); Platelet Count 222 T/CUMM (130-400); Red Blood Count 3.15 MC/CUMM (3.8-5.5); Red Cell Distribution Width 15.5 % (9.3-17.3); White Blood Count 9.8 T/CUMM (4-12)
[2020-06-26 14:18] LABS: Alanine Aminotransferase 214 U/L (16-61); Albumin 2.5 G/DL (3.4-5.0); Alkaline Phosphatase 131 U/L (45-117); Aspartate Amino Transferase 409 U/L (0-37); Bilirubin,Indirect 0.3 MG/DL (0.0-1.0); Bilirubin,Total < 0.39 MG/DL (0.2-1.0); Blood Urea Nitrogen 78 MG/DL (7-18); Calcium 9.1 MG/DL (8.5-10.1); Estimated Glom Filtration Rate 4 ML/MIN; Glucose 88 MG/DL (74-106); Osmolality,Calculated 287.4 MOS/KG (273-304); Total Protein 7.6 G/DL (6.4-8.3)
[2020-06-26 14:19] LABS: Apearance,Urine CLEAR (Clear); Bilirubin,Urine Negative (Negative); Blood, Urine Large mg/dL (Negative); Glucose,Urine (UA) Negative (Negative); Ketones,Urine Negative (Negative); Nitrite,Urine Negative (Negative); Protein,Urine 100 MG/DL; RBC,Urine 11 /HPF (0-4); Urine Color Yellow (Yellow); Urine Urobilinogen < 2.0 EU/DL (0.2-1.0); WBC,Urine 2 /HPF (0-6)
[2020-06-26] MEDS ORDERED: DEXTROSE 50% 25 GM/50 ML VIAL IV PRN (16:41)
[2020-06-26] MEDS ORDERED: GLUCAGON 1 MG VIAL IM PRN (16:41)
[2020-06-26] MEDS ORDERED: ONDANSETRON 4 MG/2 ML VIAL IV PRN (16:41)
[2020-06-26] MEDS: SODIUM CHLORIDE 0.9% 1,000 ML IV SCH (18:23)
[2020-06-27 05:04] LABS: Basophils % 0.4 % (0.0-0.8); Eosinophils # 0.8 10*3/uL (0.0-0.87); Eosinophils % 8.1 % (0.00-10.9); Hematocrit 28.5 VOL% (42.0-52.0); Hemoglobin 8.9 GM/DL (14.0-18.0); Immature Granulocytes % 0.4 %; Immature Granulocytes Absolute 0.04 #; Lymphocytes # 1.6 10*3/uL (1.4-4.0); Lymphocytes % 15.2 % (21.2-54.2); Mean Corpuscular HGB Conc 31.2 GM/DL (32-36); Mean Corpuscular Volume 92.8 FL (87-102); Mean Platelet Volume 10.7 FL (9.6-12.0); Monocytes % 9.5 % (1.7-12.7); Neutrophils % 66.4 % (38.7-73.9); Platelet Count 202 T/CUMM (130-400); Red Blood Count 3.07 MC/CUMM (3.8-5.5); Red Cell Distribution Width 15.4 % (9.3-17.3); White Blood Count 10.4 T/CUMM (4-12)
[2020-06-27 05:25] LABS: Albumin 2.2 G/DL (3.4-5.0); Calcium 8.3 MG/DL (8.5-10.1); Osmolality,Calculated 304.7 MOS/KG (273-304)
[2020-06-27] MEDS: SODIUM CHLORIDE 0.9% 1,000 ML IV SCH (07:07)
[2020-06-27] MEDS: ASPIRIN EC 325 MG TABLET PO SCH (09:05)
[2020-06-27] MEDS: CYPROHEPTADINE 4 MG TABLET PO SCH ×2 (09:05→21:24)
[2020-06-27] MEDS: oxyCODONE/ACETAMINOPHEN 5-325 MG TABLET PO PRN (09:06)
[2020-06-27] MEDS: ONDANSETRON 4 MG TABLET PO SCH ×2 (09:06→21:24)
[2020-06-27] MEDS: ASCORBIC ACID 500 MG TABLET PO SCH ×2 (09:06→21:24)
[2020-06-27 10:34] LABS: CKMB % 0.5 %
[2020-06-27] MEDS: SODIUM BICARB INJ 50 MEQ in SODIUM CHLORIDE 0.45% 1,000 ML IV SCH (13:51)
[2020-06-28] MEDS: SODIUM BICARB INJ 50 MEQ in SODIUM CHLORIDE 0.45% 1,000 ML IV SCH ×2 (00:09→13:17)
[2020-06-28 07:42] LABS: CKMB % 0.6 %
[2020-06-28] MEDS: ASPIRIN EC 325 MG TABLET PO SCH (09:31)
[2020-06-28] MEDS: ONDANSETRON 4 MG TABLET PO SCH ×2 (09:31→21:45)
[2020-06-28] MEDS: ASCORBIC ACID 500 MG TABLET PO SCH ×2 (09:31→21:45)
[2020-06-28] MEDS: CYPROHEPTADINE 4 MG TABLET PO SCH ×2 (09:31→21:45)
[2020-06-29] MEDS: SODIUM BICARB INJ 50 MEQ in SODIUM CHLORIDE 0.45% 1,000 ML IV SCH ×4 (00:05→20:39)
[2020-06-29 04:00] LABS: Basophils % 0.4 % (0.0-0.8); Eosinophils # 0.9 10*3/uL (0.0-0.87); Eosinophils % 7.8 % (0.00-10.9); Hematocrit 27.5 VOL% (42.0-52.0); Hemoglobin 8.6 GM/DL (14.0-18.0); Immature Granulocytes % 0.6 %; Immature Granulocytes Absolute 0.06 #; Lymphocytes # 1.8 10*3/uL (1.4-4.0); Lymphocytes % 16.2 % (21.2-54.2); Mean Corpuscular HGB Conc 31.3 GM/DL (32-36); Mean Corpuscular Volume 92.3 FL (87-102); Mean Platelet Volume 10.8 FL (9.6-12.0); Monocytes % 9.1 % (1.7-12.7); Neutrophils % 65.9 % (38.7-73.9); Platelet Count 211 T/CUMM (130-400); Red Blood Count 2.98 MC/CUMM (3.8-5.5); Red Cell Distribution Width 15.4 % (9.3-17.3); White Blood Count 10.9 T/CUMM (4-12)
[2020-06-29 04:26] LABS: Calcium 8.4 MG/DL (8.5-10.1); Osmolality,Calculated 297.2 MOS/KG (273-304)
[2020-06-29] MEDS: ASPIRIN EC 325 MG TABLET PO SCH (09:12)
[2020-06-29] MEDS: ASCORBIC ACID 500 MG TABLET PO SCH ×2 (09:14→20:39)
[2020-06-29] MEDS: CYPROHEPTADINE 4 MG TABLET PO SCH ×2 (09:14→20:43)
[2020-06-29] MEDS: ONDANSETRON 4 MG TABLET PO SCH ×2 (09:15→20:39)
[2020-06-30 05:08] LABS: Basophils % 0.4 % (0.0-0.8); Eosinophils # 0.8 10*3/uL (0.0-0.87); Eosinophils % 7.8 % (0.00-10.9); Hematocrit 26.8 VOL% (42.0-52.0); Hemoglobin 8.3 GM/DL (14.0-18.0); Immature Granulocytes % 0.5 %; Immature Granulocytes Absolute 0.05 #; Lymphocytes # 1.4 10*3/uL (1.4-4.0); Lymphocytes % 13.3 % (21.2-54.2); Mean Corpuscular Volume 92.4 FL (87-102); Mean Platelet Volume 10.5 FL (9.6-12.0); Platelet Count 215 T/CUMM (130-400); Red Cell Distribution Width 15.6 % (9.3-17.3); White Blood Count 10.8 T/CUMM (4-12)
[2020-06-30 05:31] LABS: Calcium 8.4 MG/DL (8.5-10.1); Osmolality,Calculated 291.8 MOS/KG (273-304)
[2020-06-30] MEDS: SODIUM BICARB INJ 50 MEQ in SODIUM CHLORIDE 0.45% 1,000 ML IV SCH ×4 (06:53→19:17)
[2020-06-30] MEDS: ASPIRIN EC 325 MG TABLET PO SCH (08:06)
[2020-06-30] MEDS: ASCORBIC ACID 500 MG TABLET PO SCH ×2 (08:06→21:58)
[2020-06-30] MEDS: ONDANSETRON 4 MG TABLET PO SCH ×2 (08:06→21:58)
[2020-06-30] MEDS: CYPROHEPTADINE 4 MG TABLET PO SCH ×2 (08:06→21:58)
[2020-07-01] MEDS: SODIUM BICARB INJ 50 MEQ in SODIUM CHLORIDE 0.45% 1,000 ML IV SCH ×2 (01:00→07:15)
[2020-07-01 03:20] LABS: Basophils # 0.1 10*3/uL (0.0-0.2); Basophils % 0.4 % (0.0-0.8); Eosinophils # 0.8 10*3/uL (0.0-0.87); Eosinophils % 7.2 % (0.00-10.9); Hematocrit 26.3 VOL% (42.0-52.0); Hemoglobin 8.2 GM/DL (14.0-18.0); Immature Granulocytes % 0.6 %; Immature Granulocytes Absolute 0.07 #; Lymphocytes # 1.4 10*3/uL (1.4-4.0); Lymphocytes % 12.1 % (21.2-54.2); Mean Corpuscular HGB Conc 31.2 GM/DL (32-36); Mean Corpuscular Volume 92.6 FL (87-102); Mean Platelet Volume 10.8 FL (9.6-12.0); Monocytes % 9.6 % (1.7-12.7); Neutrophils % 70.1 % (38.7-73.9); Platelet Count 219 T/CUMM (130-400); Red Blood Count 2.84 MC/CUMM (3.8-5.5); Red Cell Distribution Width 15.5 % (9.3-17.3); White Blood Count 11.4 T/CUMM (4-12)
[2020-07-01 03:44] LABS: Calcium 8.3 MG/DL (8.5-10.1); Osmolality,Calculated 293.1 MOS/KG (273-304)
[2020-07-01] MEDS ORDERED: FUROSEMIDE 40 MG/4 ML VIAL IV ONE (09:10)
[2020-07-01] MEDS: ASCORBIC ACID 500 MG TABLET PO SCH ×2 (10:10→21:29)
[2020-07-01] MEDS: CYPROHEPTADINE 4 MG TABLET PO SCH ×2 (10:10→21:29)
[2020-07-01] MEDS: ONDANSETRON 4 MG TABLET PO SCH ×2 (10:10→21:29)
[2020-07-01] MEDS: ASPIRIN EC 325 MG TABLET PO SCH (10:10)
[2020-07-01] MEDS ORDERED: LIDOCAINE 1% 20 ML VIAL ONE (12:59)
[2020-07-01] MEDS ORDERED: HEPARIN 5,000 UNIT/1 ML VIAL ONE (12:59)
[2020-07-01] MEDS ORDERED: BUPIVACAINE MPF 0.25% 30 ML VIAL ONE (13:07)
[2020-07-01] MEDS ORDERED: LIDOCAINE 1%/EPI INJ 20 ML VIAL ONE (13:07)
[2020-07-01] MEDS ORDERED: ceFAZolin 1,000 MG in SYRINGE 1 EACH IV ONE (15:00)
[2020-07-01 16:09] LABS: Hepatitis B Core IgM Quant 0.22 Index; Hepatitis B Surface Ag Quant < 0.10 Index; Hepatitis B Surface Ag Result Negative (Negative); Hepatitis C Virus Ab Result Negative (Negative)
[2020-07-01] MEDS ORDERED: LIDOCAINE 2% 5 ML VIAL ONE (16:33)
[2020-07-01] MEDS ORDERED: propofoL 200 MG/20 ML VIAL IV ONE (16:33)
[2020-07-01] MEDS ORDERED: SODIUM CHLORIDE 0.9% 100 ML IV ONE (16:34)
[2020-07-01] MEDS ORDERED: SODIUM CHLORIDE 0.9% 250 ML IV ONE (16:34)
[2020-07-01] MEDS ORDERED: fentaNYL 100 MCG/2 ML VIAL ONE (16:34)
[2020-07-01] MEDS ORDERED: HEPARIN 10,000 UNIT/10 ML VIAL IV SCH (17:45)
[2020-07-02 04:57] LABS: Basophils % 0.3 % (0.0-0.8); Eosinophils # 0.5 10*3/uL (0.0-0.87); Eosinophils % 4.6 % (0.00-10.9); Hematocrit 26.1 VOL% (42.0-52.0); Immature Granulocytes % 0.5 %; Immature Granulocytes Absolute 0.06 #; Lymphocytes # 1.4 10*3/uL (1.4-4.0); Lymphocytes % 12.3 % (21.2-54.2); Mean Corpuscular HGB Conc 30.7 GM/DL (32-36); Mean Corpuscular Volume 92.2 FL (87-102); Monocytes % 9.9 % (1.7-12.7); Neutrophils % 72.4 % (38.7-73.9); Platelet Count 197 T/CUMM (130-400); Red Blood Count 2.83 MC/CUMM (3.8-5.5); Red Cell Distribution Width 15.4 % (9.3-17.3); White Blood Count 11.6 T/CUMM (4-12)
[2020-07-02 05:25] LABS: Calcium 8.2 MG/DL (8.5-10.1); Osmolality,Calculated 288.4 MOS/KG (273-304)
[2020-07-02] MEDS ORDERED: MIDODRINE 2.5 MG TABLET PO ONE (08:39)
[2020-07-02] MEDS ORDERED: MIDODRINE 5 MG TABLET PO ONE (13:58)
[2020-07-02] MEDS: ASCORBIC ACID 500 MG TABLET PO SCH ×2 (14:15→20:59)
[2020-07-02] MEDS: ONDANSETRON 4 MG TABLET PO SCH ×2 (14:16→20:59)
[2020-07-02] MEDS: CYPROHEPTADINE 4 MG TABLET PO SCH ×2 (14:16→20:59)
[2020-07-02] MEDS: ASPIRIN EC 325 MG TABLET PO SCH (14:16)
[2020-07-02] MEDS ORDERED: SODIUM CHLORIDE 0.9% 500 ML IV ONE (14:59)
[2020-07-02] MEDS: CEFEPIME 1,000 MG in SODIUM CHLORIDE 0.9% 100 ML IV SCH (17:13)
[2020-07-03 05:54] LABS: Basophils # 0.1 10*3/uL (0.0-0.2); Basophils % 0.4 % (0.0-0.8); Eosinophils # 0.6 10*3/uL (0.0-0.87); Eosinophils % 4.7 % (0.00-10.9); Hematocrit 25.2 VOL% (42.0-52.0); Hemoglobin 7.7 GM/DL (14.0-18.0); Immature Granulocytes % 0.7 %; Immature Granulocytes Absolute 0.09 #; Lymphocytes # 1.6 10*3/uL (1.4-4.0); Lymphocytes % 11.6 % (21.2-54.2); Mean Corpuscular HGB Conc 30.6 GM/DL (32-36); Mean Corpuscular Volume 93.3 FL (87-102); Mean Platelet Volume 10.9 FL (9.6-12.0); Monocytes % 11.3 % (1.7-12.7); Neutrophils % 71.3 % (38.7-73.9); Platelet Count 181 T/CUMM (130-400); Red Cell Distribution Width 15.8 % (9.3-17.3); White Blood Count 13.7 T/CUMM (4-12)
[2020-07-03] MEDS: ASPIRIN EC 325 MG TABLET PO SCH (08:00)
[2020-07-03] MEDS: CYPROHEPTADINE 4 MG TABLET PO SCH ×2 (08:00→20:38)
[2020-07-03] MEDS: MIDODRINE 2.5 MG TABLET PO SCH (08:00)
[2020-07-03] MEDS: ONDANSETRON 4 MG TABLET PO SCH ×2 (08:00→20:38)
[2020-07-03] MEDS: ASCORBIC ACID 500 MG TABLET PO SCH ×2 (08:00→20:38)
[2020-07-03] MEDS: CEFEPIME 1,000 MG in SODIUM CHLORIDE 0.9% 100 ML IV SCH (15:12)
[2020-07-03] MEDS: ACETAMINOPHEN 325 MG TABLET PO PRN (22:37)
[2020-07-04] MEDS: oxyCODONE/ACETAMINOPHEN 5-325 MG TABLET PO PRN ×2 (00:18→20:07)
[2020-07-04 06:02] LABS: Basophils # 0.1 10*3/uL (0.0-0.2); Basophils % 0.4 % (0.0-0.8); Eosinophils # 0.5 10*3/uL (0.0-0.87); Eosinophils % 3.8 % (0.00-10.9); Hematocrit 24.9 VOL% (42.0-52.0); Hemoglobin 7.6 GM/DL (14.0-18.0); Immature Granulocytes % 0.5 %; Immature Granulocytes Absolute 0.06 #; Lymphocytes # 1.7 10*3/uL (1.4-4.0); Lymphocytes % 13.2 % (21.2-54.2); Mean Corpuscular HGB Conc 30.5 GM/DL (32-36); Mean Corpuscular Volume 94.7 FL (87-102); Mean Platelet Volume 10.9 FL (9.6-12.0); Monocytes % 8.5 % (1.7-12.7); Neutrophils % 73.6 % (38.7-73.9); Platelet Count 196 T/CUMM (130-400); Red Blood Count 2.63 MC/CUMM (3.8-5.5); Red Cell Distribution Width 15.8 % (9.3-17.3); White Blood Count 13.2 T/CUMM (4-12)
[2020-07-04 06:22] LABS: Calcium 7.9 MG/DL (8.5-10.1); Osmolality,Calculated 275.1 MOS/KG (273-304)
[2020-07-04] MEDS: ASPIRIN EC 325 MG TABLET PO SCH (08:09)
[2020-07-04] MEDS: CYPROHEPTADINE 4 MG TABLET PO SCH ×2 (08:10→20:00)
[2020-07-04] MEDS: ONDANSETRON 4 MG TABLET PO SCH ×2 (08:10→20:00)
[2020-07-04] MEDS: ASCORBIC ACID 500 MG TABLET PO SCH ×2 (08:10→20:00)
[2020-07-04] MEDS: MIDODRINE 2.5 MG TABLET PO SCH (08:10)
[2020-07-04] MEDS: HEPARIN 5,000 UNIT/1 ML VIAL SUBCUT SCH ×2 (12:17→19:58)
[2020-07-04] MEDS: CEFEPIME 1,000 MG in SODIUM CHLORIDE 0.9% 100 ML IV SCH (15:04)
[2020-07-05] MEDS: HEPARIN 5,000 UNIT/1 ML VIAL SUBCUT SCH ×3 (04:10→21:02)
[2020-07-05 04:41] LABS: Basophils % 0.3 % (0.0-0.8); Eosinophils # 0.9 10*3/uL (0.0-0.87); Eosinophils % 6.5 % (0.00-10.9); Hematocrit 23.9 VOL% (42.0-52.0); Hemoglobin 7.2 GM/DL (14.0-18.0); Immature Granulocytes % 0.6 %; Immature Granulocytes Absolute 0.08 #; Lymphocytes # 1.5 10*3/uL (1.4-4.0); Lymphocytes % 11.3 % (21.2-54.2); Mean Corpuscular HGB Conc 30.1 GM/DL (32-36); Mean Corpuscular Volume 95.6 FL (87-102); Mean Platelet Volume 10.7 FL (9.6-12.0); Monocytes % 8.4 % (1.7-12.7); Neutrophils % 72.9 % (38.7-73.9); Platelet Count 192 T/CUMM (130-400); Red Cell Distribution Width 15.8 % (9.3-17.3); White Blood Count 13.2 T/CUMM (4-12)
[2020-07-05 05:08] LABS: Albumin 1.9 G/DL (3.4-5.0); Calcium 7.8 MG/DL (8.5-10.1)
[2020-07-05] MEDS: CYPROHEPTADINE 4 MG TABLET PO SCH ×2 (10:02→21:04)
[2020-07-05] MEDS: ONDANSETRON 4 MG TABLET PO SCH ×2 (10:02→21:04)
[2020-07-05] MEDS: ASPIRIN EC 81 MG TABLET PO SCH (10:02)
[2020-07-05] MEDS: ASCORBIC ACID 500 MG TABLET PO SCH ×2 (10:03→21:04)
[2020-07-05] MEDS: MIDODRINE 2.5 MG TABLET PO SCH (10:03)
[2020-07-05] MEDS ORDERED: SODIUM CHLORIDE 0.9% 1,000 ML IV PRN (13:27)
[2020-07-05] MEDS: PIPERACILLIN/TAZOBACTAM 3,375 MG in SODIUM CHLORIDE 0.9% 100 ML IV SCH (15:31)
[2020-07-05] MEDS: ACETAMINOPHEN 325 MG TABLET PO PRN (21:04)
[2020-07-06] MEDS: PIPERACILLIN/TAZOBACTAM 3,375 MG in SODIUM CHLORIDE 0.9% 100 ML IV SCH ×2 (01:37→20:28)
[2020-07-06 01:47] LABS: Apearance,Urine CLOUDY (Clear); Bilirubin,Urine Negative (Negative); Blood, Urine Moderate mg/dL (Negative); Glucose,Urine (UA) Negative (Negative); Ketones,Urine Negative (Negative); Nitrite,Urine Negative (Negative); Protein,Urine 100 MG/DL; Urine Color Yellow (Yellow); Urine Specific Gravity 1.009 (1.001-1.035); Urine Urobilinogen < 2.0 EU/DL (0.2-1.0); WBC,Urine 18048 /HPF (0-6)
[2020-07-06] MEDS: HEPARIN 5,000 UNIT/1 ML VIAL SUBCUT SCH ×3 (04:18→20:28)
[2020-07-06 05:48] LABS: Basophils % 0.3 % (0.0-0.8); Eosinophils # 0.8 10*3/uL (0.0-0.87); Eosinophils % 7.3 % (0.00-10.9); Hematocrit 22.9 VOL% (42.0-52.0); Hemoglobin 7.1 GM/DL (14.0-18.0); Immature Granulocytes % 0.8 %; Immature Granulocytes Absolute 0.09 #; Lymphocytes # 1.7 10*3/uL (1.4-4.0); Lymphocytes % 15.5 % (21.2-54.2); Mean Corpuscular Volume 94.6 FL (87-102); Mean Platelet Volume 11.2 FL (9.6-12.0); Monocytes % 7.1 % (1.7-12.7); Platelet Count 182 T/CUMM (130-400); Red Blood Count 2.42 MC/CUMM (3.8-5.5); Red Cell Distribution Width 15.9 % (9.3-17.3); White Blood Count 10.9 T/CUMM (4-12)
[2020-07-06] MEDS: ASPIRIN EC 81 MG TABLET PO SCH (11:48)
[2020-07-06] MEDS: CYPROHEPTADINE 4 MG TABLET PO SCH ×2 (11:48→20:28)
[2020-07-06] MEDS: ASCORBIC ACID 500 MG TABLET PO SCH ×2 (11:48→20:28)
[2020-07-06] MEDS: ONDANSETRON 4 MG TABLET PO SCH ×2 (11:48→20:28)
[2020-07-06] MEDS: MIDODRINE 2.5 MG TABLET PO SCH (11:53)
[2020-07-06] MEDS: ACETAMINOPHEN 325 MG TABLET PO PRN ×2 (13:24→18:34)
[2020-07-06] MEDS: PSYLLIUM POWDER 3.7 GM/PACK PO PRN (18:17)
[2020-07-07 05:25] LABS: Basophils # 0.1 10*3/uL (0.0-0.2); Basophils % 0.5 % (0.0-0.8); Eosinophils % 7.7 % (0.00-10.9); Hematocrit 30.9 VOL% (42.0-52.0); Hemoglobin 9.9 GM/DL (14.0-18.0); Immature Granulocytes % 1.1 %; Immature Granulocytes Absolute 0.15 #; Lymphocytes # 2.1 10*3/uL (1.4-4.0); Mean Corpuscular Volume 89.6 FL (87-102); Mean Platelet Volume 10.8 FL (9.6-12.0); Monocytes % 8.6 % (1.7-12.7); Neutrophils % 66.1 % (38.7-73.9); Platelet Count 190 T/CUMM (130-400); Red Blood Count 3.45 MC/CUMM (3.8-5.5); Red Cell Distribution Width 17.1 % (9.3-17.3); White Blood Count 13.1 T/CUMM (4-12)
[2020-07-07 05:35] LABS: Calcium 8.2 MG/DL (8.5-10.1)
[2020-07-07] MEDS: HEPARIN 5,000 UNIT/1 ML VIAL SUBCUT SCH ×3 (06:05→21:08)
[2020-07-07] MEDS: MIDODRINE 2.5 MG TABLET PO SCH (09:36)
[2020-07-07] MEDS: CYPROHEPTADINE 4 MG TABLET PO SCH ×2 (09:36→21:08)
[2020-07-07] MEDS: ONDANSETRON 4 MG TABLET PO SCH ×2 (09:36→21:08)
[2020-07-07] MEDS: ASCORBIC ACID 500 MG TABLET PO SCH ×2 (09:36→21:08)
[2020-07-07] MEDS: ASPIRIN EC 81 MG TABLET PO SCH (09:36)
[2020-07-07] MEDS: PIPERACILLIN/TAZOBACTAM 3,375 MG in SODIUM CHLORIDE 0.9% 100 ML IV SCH ×2 (09:36→21:09)
[2020-07-07] MEDS: ACETAMINOPHEN 325 MG TABLET PO PRN (09:46)
[2020-07-07] MEDS: PSYLLIUM POWDER 3.7 GM/PACK PO PRN (10:04)
[2020-07-07] MEDS: FLUCONAZOLE INJ 200 MG in PREMIX 1 EACH IV SCH (12:52)
[2020-07-08] MEDS: HEPARIN 5,000 UNIT/1 ML VIAL SUBCUT SCH ×3 (04:28→20:58)
[2020-07-08 05:34] LABS: Basophils # 0.1 10*3/uL (0.0-0.2); Basophils % 0.4 % (0.0-0.8); Eosinophils # 0.9 10*3/uL (0.0-0.87); Eosinophils % 6.9 % (0.00-10.9); Hematocrit 31.2 VOL% (42.0-52.0); Hemoglobin 9.9 GM/DL (14.0-18.0); Immature Granulocytes Absolute 0.13 #; Lymphocytes # 1.8 10*3/uL (1.4-4.0); Lymphocytes % 13.8 % (21.2-54.2); Mean Corpuscular HGB Conc 31.7 GM/DL (32-36); Mean Corpuscular Volume 90.4 FL (87-102); Monocytes % 9.9 % (1.7-12.7); Platelet Count 185 T/CUMM (130-400); Red Blood Count 3.45 MC/CUMM (3.8-5.5); Red Cell Distribution Width 16.8 % (9.3-17.3); White Blood Count 13.2 T/CUMM (4-12)
[2020-07-08 06:10] LABS: Calcium 8.6 MG/DL (8.5-10.1); Osmolality,Calculated 275.2 MOS/KG (273-304)
[2020-07-08] MEDS: ASPIRIN EC 81 MG TABLET PO SCH (09:25)
[2020-07-08] MEDS: ASCORBIC ACID 500 MG TABLET PO SCH ×2 (09:25→20:59)
[2020-07-08] MEDS: CYPROHEPTADINE 4 MG TABLET PO SCH ×2 (09:25→20:58)
[2020-07-08] MEDS: PIPERACILLIN/TAZOBACTAM 3,375 MG in SODIUM CHLORIDE 0.9% 100 ML IV SCH ×2 (09:25→20:57)
[2020-07-08] MEDS: ONDANSETRON 4 MG TABLET PO SCH ×2 (09:25→20:58)
[2020-07-08] MEDS: MIDODRINE 2.5 MG TABLET PO SCH (09:37)
[2020-07-08] MEDS: FLUCONAZOLE INJ 200 MG in PREMIX 1 EACH IV SCH (13:43)
[2020-07-08] MEDS: ACETAMINOPHEN 325 MG TABLET PO PRN (17:02)
[2020-07-08] MEDS: PSYLLIUM POWDER 3.7 GM/PACK PO PRN (18:20)
[2020-07-08] MEDS: SIMETHICONE CHEW 80 MG TABLET PO PRN (22:35)
[2020-07-09] MEDS: HEPARIN 5,000 UNIT/1 ML VIAL SUBCUT SCH ×3 (04:37→21:11)
[2020-07-09 05:46] LABS: Calcium 8.3 MG/DL (8.5-10.1); Osmolality,Calculated 283.8 MOS/KG (273-304)
[2020-07-09 05:48] LABS: Basophils # 0.1 10*3/uL (0.0-0.2); Basophils % 0.5 % (0.0-0.8); Eosinophils % 8.2 % (0.00-10.9); Hematocrit 31.4 VOL% (42.0-52.0); Hemoglobin 9.8 GM/DL (14.0-18.0); Immature Granulocytes Absolute 0.12 #; Lymphocytes # 2.1 10*3/uL (1.4-4.0); Lymphocytes % 16.7 % (21.2-54.2); Mean Corpuscular HGB Conc 31.2 GM/DL (32-36); Mean Corpuscular Volume 90.2 FL (87-102); Mean Platelet Volume 11.4 FL (9.6-12.0); Monocytes % 10.8 % (1.7-12.7); Neutrophils % 62.8 % (38.7-73.9); Platelet Count 188 T/CUMM (130-400); Red Blood Count 3.48 MC/CUMM (3.8-5.5); Red Cell Distribution Width 16.7 % (9.3-17.3); White Blood Count 12.4 T/CUMM (4-12)
[2020-07-09] MEDS: carvediloL 6.25 MG TABLET PO SCH ×2 (08:57→17:02)
[2020-07-09] MEDS: ASCORBIC ACID 500 MG TABLET PO SCH ×2 (08:58→21:12)
[2020-07-09] MEDS: MIDODRINE 2.5 MG TABLET PO SCH (08:58)
[2020-07-09] MEDS: ASPIRIN EC 81 MG TABLET PO SCH (08:58)
[2020-07-09] MEDS: CYPROHEPTADINE 4 MG TABLET PO SCH ×2 (08:58→21:12)
[2020-07-09] MEDS: SIMETHICONE CHEW 80 MG TABLET PO PRN (09:01)
[2020-07-09] MEDS: ONDANSETRON 4 MG TABLET PO SCH ×2 (09:01→21:12)
[2020-07-09] MEDS: PIPERACILLIN/TAZOBACTAM 3,375 MG in SODIUM CHLORIDE 0.9% 100 ML IV SCH ×2 (09:02→21:13)
[2020-07-09] MEDS ORDERED: MAGNESIUM HYDROXIDE SUSP 30 ML UDCUP PO PRN (10:35)
[2020-07-09] MEDS ORDERED: TUBERCULIN SKIN TEST 0.1 ML SYRINGE INTRADERM ONE (10:54)
[2020-07-09] MEDS: FLUCONAZOLE INJ 200 MG in PREMIX 1 EACH IV SCH (14:07)
[2020-07-10 05:28] LABS: Basophils # 0.1 10*3/uL (0.0-0.2); Basophils % 0.7 % (0.0-0.8); Eosinophils # 0.8 10*3/uL (0.0-0.87); Eosinophils % 7.2 % (0.00-10.9); Hematocrit 29.6 VOL% (42.0-52.0); Hemoglobin 9.2 GM/DL (14.0-18.0); Immature Granulocytes % 0.7 %; Immature Granulocytes Absolute 0.08 #; Lymphocytes # 2.3 10*3/uL (1.4-4.0); Mean Corpuscular HGB Conc 31.1 GM/DL (32-36); Mean Corpuscular Volume 93.1 FL (87-102); Monocytes % 12.2 % (1.7-12.7); Neutrophils % 58.2 % (38.7-73.9); Platelet Count 181 T/CUMM (130-400); Red Blood Count 3.18 MC/CUMM (3.8-5.5); Red Cell Distribution Width 16.6 % (9.3-17.3)
[2020-07-10] MEDS: HEPARIN 5,000 UNIT/1 ML VIAL SUBCUT SCH ×2 (05:45→13:05)
[2020-07-10 05:55] LABS: Calcium 8.3 MG/DL (8.5-10.1); Osmolality,Calculated 287.8 MOS/KG (273-304)
[2020-07-10] MEDS ORDERED: POLYETHYLENE GLYCOL POWDER 17 GM PACK PO SCH (09:00)
[2020-07-10] MEDS ORDERED: DOCUSATE SODIUM 100 MG CAPSULE PO SCH (09:00)
[2020-07-10] MEDS ORDERED: MAGNESIUM HYDROXIDE SUSP 30 ML UDCUP PO SCH (09:00)
[2020-07-10] MEDS: PIPERACILLIN/TAZOBACTAM 3,375 MG in SODIUM CHLORIDE 0.9% 100 ML IV SCH (09:08)
[2020-07-10 12:22] VITALS: BP 101/54
[2020-07-10] MEDS: ONDANSETRON 4 MG TABLET PO SCH (13:04)
[2020-07-10] MEDS: ASCORBIC ACID 500 MG TABLET PO SCH (13:04)
[2020-07-10] MEDS: ASPIRIN EC 81 MG TABLET PO SCH (13:04)
[2020-07-10] MEDS: carvediloL 6.25 MG TABLET PO SCH (13:04)
[2020-07-10] MEDS: CYPROHEPTADINE 4 MG TABLET PO SCH (13:04)
[2020-07-10] MEDS: MIDODRINE 2.5 MG TABLET PO SCH (13:05)
[2020-07-10] MEDS: SIMETHICONE CHEW 80 MG TABLET PO PRN (13:35)
== END 2020-07-10 16:53 | DRG 674 ==
LOC: EDBD → EDUNIT# → N.ED 13:06 → N.EDINP 13:06 → SUATTDRO 16:41 → N.TELES 17:44 → SUATTDRO 06-27 15:26
PROVIDERS: ADMIT Internal Medicine Geriatric Medicine; ATTEND Internal Medicine